=== PATIENT | female | born 1980 ===

== ENCOUNTER 2017-08-10 17:47 | Inpatient (IN) | payer OTHER ==
--- NOTE | 2017-08-10 20:11 | C.PDOC ---
History Of Present Illness 36 year old female presents to the ED for change in IV antibiotics. Patient was seen in the ED on 08/08 and discharged home with antibiotics. Patient's lab results showed urine positive for ESBL-producing E coli and was called back for a change in medication. Patient denies reports suprapubic abdominal pain and has no other complaints at time. Time Seen by Provider: 08/10/17 19:45 Chief Complaint (Nursing): Female Genitourinary History Per: Patient History/Exam Limitations: no limitations Onset/Duration Of Symptoms: Days Current Symptoms Are (Timing): Still Present Additional History Per: Patient Past Medical History Reviewed: Historical Data, Nursing Documentation, Vital Signs Vital Signs: Last Vital Signs Temp 98.2 F 08/10/17 18:19 Pulse 80 08/10/17 18:19 Resp 16 08/10/17 18:19 BP 116/68 08/10/17 18:19 Pulse Ox 95 08/10/17 22:59 - Medical History PMH: No Chronic Diseases Surgical History: No Surg Hx Family History: States: Unknown Family Hx - Social History Hx Alcohol Use: No Hx Substance Use: No - Immunization History Hx Tetanus Toxoid Vaccination: No Hx Influenza Vaccination: No Hx Pneumococcal Vaccination: No Review Of Systems Gastrointestinal: Positive for: Abdominal Pain (suprapubic ) Physical Exam - Physical Exam Appears: Non-toxic, No Acute Distress Skin: Normal Color, Warm, Dry Head: Atraumatic, Normacephalic Eye(s): bilateral: Normal Inspection Oral Mucosa: Moist Neck: Supple Chest: Symmetrical, No Deformity, No Tenderness Cardiovascular: Rhythm Regular, No Murmur Respiratory: Normal Breath Sounds, No Rales, No Rhonchi, No Wheezing Gastrointestinal/Abdominal: Tenderness (suprapubic ), No Guarding, No Rebound Extremity: Normal ROM, Capillary Refill (less than 2 seconds ) Neurological/Psych: Oriented x3, Normal Speech, Normal Cognition Gait: Steady ED Course And Treatment - Laboratory Results Result Diagrams: 08/10/17 20:33 08/10/17 20:33 O2 Sat by Pulse Oximetry: 95 (on RA ) Pulse Ox Interpretation: Normal Medical Decision Making Medical Decision Making: Impression: 36 year old female with suprapubic pain, called back for change in IV antibiotics Plan: * labs * Primaxin IV * reassess and disposition Progress: labs ordered and reviewed. Patient received Primaxin IV. pt needs iv antibiotics as esbl resisten to multiple po antibiotics. Disposition - Disposition Disposition: HOSPITALIZED Disposition Time: 23:52 Condition: STABLE - Clinical Impression Clinical Impression: ESBL (extended spectrum beta-lactamase) producing bacteria infection, UTI ( urinary tract infection) - Scribe Statement The provider has reviewed the documentation as recorded by the Scribe (Yudith Quiroga) Provider Attestation: All medical record entries made by the Scribe were at my direction and personally dictated by me. I have reviewed the chart and agree that the record accurately reflects my personal performance of the history, physical exam, medical decision making, and the department course for this patient. I have also personally directed, reviewed, and agree with the discharge instructions and disposition.
[2017-08-10 20:39] LABS: BASO # 0.1 K/uL (0.0-0.2); BASO % 0.7 % (0.0-2.0); EOS # 0.2 K/uL (0.0-0.7); EOS % 2.1 % (0.0-4.0); HEMATOCRIT 37.7 % (34.0-47.0); LYMPH # 3.7 K/uL (1.0-4.3); LYMPH % 42.6 % (20.0-40.0); MEAN CELL VOLUME 89.1 fL (81.0-99.0); MEAN CORPUSCULAR HGB CONC 33.6 g/dL (33.0-37.0); MEAN PLATELET VOLUME 7.3 fL (7.2-11.7); MONO # 0.5 K/uL (0.0-0.8); MONO % 5.3 % (0.0-10.0); RED CELL DISTRIBUTION WIDTH 12.9 % (11.5-14.5); WHITE BLOOD COUNT 8.6 K/uL (4.8-10.8)
[2017-08-10 20:45] LABS: RBC URINE 29 /hpf (0-3); URINE BILIRUBIN NEGATIVE (NEGATIVE); URINE BLOOD 2+ (NEGATIVE); URINE COLOR Amber (YELLOW); URINE GLUCOSE (UA) NORMAL (Normal); URINE KETONE NEGATIVE (NEGATIVE); URINE LEUKOCYTE ESTERASE NEG Leu/uL (Negative); URINE PROTEIN NEGATIVE (NEGATIVE); WBC URINE 1 /hpf (0-5)
[2017-08-10 20:48] LABS: CHLORIDE 106 mmol/L (98-107); SODIUM 140 mmol/L (132-148)
[2017-08-10 20:50] LABS: ALB/GLOB RATIO 1.4 (1.0-2.1); ALKALINE PHOSPHATASE 48 U/L (38-126); AST/SGOT 30 U/L (14-36); BILIRUBIN,TOTAL 0.8 mg/dL (0.2-1.3); CARBON DIOXIDE 20 mmol/L (22-30); GFR AFRICAN-AMERICAN > 60; TOTAL PROTEIN 7.5 g/dL (6.3-8.3)
[2017-08-10 20:51] LABS: ALT/SGPT 50 U/L (9-52); BLOOD UREA NITROGEN 13 mg/dL (7-17); CALCIUM 9.8 mg/dl (8.6-10.4); GLUCOSE,RANDOM 99 mg/dL (65-105)
--- NOTE | 2017-08-10 22:26 | CT ---
EXAM: CT Abdomen and Pelvis Without Intravenous Contrast CLINICAL HISTORY: 36 years old, female; Pain; Abdominal pain; Other: Pelvic; Additional info: Flank pain TECHNIQUE: Axial computed tomography images of the abdomen and pelvis without intravenous contrast. All CT scans at this facility use one or more dose reduction techniques, viz.: automated exposure control; ma/kV adjustment per patient size (including targeted exams where dose is matched to indication; i.e. head); or iterative reconstruction technique. Coronal and sagittal reformatted images were created and reviewed. COMPARISON: No relevant prior studies available. FINDINGS: Lower thorax: No acute findings. ABDOMEN: Liver: Unremarkable. Gallbladder and bile ducts: No calcified stones. No ductal dilation. Pancreas: Unremarkable. No ductal dilation. Spleen: No splenomegaly. Adrenals: No mass. Kidneys and ureters: No renal calculi. No hydronephrosis. Stomach and bowel: No definite mural thickening. No obstruction. Appendix: No definite findings to suggest acute appendicitis. PELVIS: Bladder: Unremarkable. No stones. Reproductive: Unremarkable as visualized. ABDOMEN and PELVIS: Intraperitoneal space: No significant fluid collection. No free air. Bones/joints: No acute fracture. Soft tissues: Tiny umbilical hernia containing fat. Vasculature: Unremarkable. No aneurysm. Lymph nodes: No pathologically enlarged lymph nodes. IMPRESSION: 1. No CT evidence of urolithiasis. 2. Incidental/non-acute findings are described above.
[2017-08-11 01:29] VITALS: RESP 20
--- NOTE | 2017-08-11 03:45 | CP.PCM.HP ---
<Skyler Magana - Last Filed: 08/11/17 04:07> History of Present Illness - History of Present Illness History of Present Illness: CC: I was called back 36 yo F with a PMHx of recurrent UTI's returns to the ED because her urine culture from a few days ago has grown EColi + for ESBL. She presented to the ED on 08/08 for dysuria and urinary frequency and was sent home on Cipro and Flagyl , however the patient returns today for an antibiotic change more suited to cover for + ESBL. Today she complains of dysuria, urinary frequency, bladder fullness, and headache. She says she gets a UTI every 2 months which she treats with over the counter anti-inflammatory meds. She does not have a PMD. Associated symptoms include low back pain and abdominal pain in the hypogastric region. She denies gross hematuria, nausea, vomiting, flank pain, diarrhea, fever, chills. 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 FamHx: Mom: urinary incontinence, frequent UTIs, HTN; Father: HTN Present on Admission - Present on Admission Any Indicators Present on Admission: No History of DVT/PE: No History of Uncontrolled Diabetes: No Urinary Catheter: No Decubitus Ulcer Present: No Review of Systems - Constitutional Constitutional: absent: Chills, Fever - EENT Eyes: absent: Change in Vision Ears: absent: Ear Pain Nose/Mouth/Throat: absent: Nasal Congestion, Nasal Discharge - Cardiovascular Cardiovascular: absent: Chest Pain, Diaphoresis, Palpitations - Respiratory Respiratory: absent: Cough, Dyspnea, Wheezing - Gastrointestinal Gastrointestinal: As Per HPI, Constipation. absent: Diarrhea - Genitourinary Genitourinary: As Per HPI, Dysuria, Urinary Frequency, Freq UTI, Bladder Distension. absent: Flank Pain, Hematuria, Pyuria, Urinary Incontinence - Reproductive: Female Reproductive:Female: Normal Menses - Musculoskeletal Musculoskeletal: As Per HPI, Back Pain - Neurological Neurological: Headaches. absent: Convulsions, Dizziness Past Patient History - Infectious Disease Hx of Infectious Diseases: None - Past Medical History & Family History Past Medical History?: No - Past Social History Smoking Status: Never Smoked - PSYCHIATRIC Hx Substance Use: No - SURGICAL HISTORY Hx Surgeries: Yes Hx Section: Yes - ANESTHESIA Hx Anesthesia: Yes Hx Anesthesia Reactions: No Meds Allergies/Adverse Reactions: Allergies Allergy/AdvReac Type Severity Reaction Status Date / Time seasonal Allergy Uncoded 08/10/17 18:19 Physical Exam - Constitutional Appears: Well, Non-toxic, No Acute Distress - Head Exam Head Exam: ATRAUMATIC, NORMAL INSPECTION - Eye Exam Eye Exam: EOMI Pupil Exam: PERRL - ENT Exam ENT Exam: Mucous Membranes Moist - Neck Exam Neck exam: Positive for: Normal Inspection. Negative for: Lymphadenopathy - Respiratory Exam Respiratory Exam: Clear to Auscultation Bilateral, NORMAL BREATHING PATTERN. absent: Rales, Rhonchi, Wheezes - Cardiovascular Exam Cardiovascular Exam: REGULAR RHYTHM, RRR, +S1, +S2. absent: Bradycardia, Tachycardia, +S4 - GI/Abdominal Exam GI & Abdominal Exam: Normal Bowel Sounds, Soft. absent: Distended, Tenderness - Rectal Exam Rectal Exam: Deferred - Extremities Exam Extremities exam: Positive for: normal inspection, pedal pulses present. Negative for: pedal edema, tenderness - Back Exam Back exam: absent: CVA tenderness (L), CVA tenderness (R), tenderness, vertebral tenderness - Neurological Exam Neurological exam: Alert, Normal Gait, Oriented x3 - Psychiatric Exam Psychiatric exam: Normal Affect, Normal Mood - Skin Skin Exam: Dry, Intact, Normal Color, Warm Results - Vital Signs Recent Vital Signs: Last Vital Signs Temp 97.8 F 08/11/17 01:28 Pulse 71 08/11/17 02:36 Resp 20 08/11/17 01:28 BP 103/66 08/11/17 01:28 Pulse Ox 97 08/11/17 01:28 - Labs Result Diagrams: 08/10/17 20:33 08/10/17 20:33 Labs: Laboratory Results - last 24 hr 08/10/17 08/10/17 08/10/17 20:07 20:20 20:33 WBC 8.6 RBC 4.23 Hgb 12.7 Hct 37.7 MCV 89.1 MCH 30.0 MCHC 33.6 RDW 12.9 Plt Count 219 MPV 7.3 Neut % (Auto) 49.3 L Lymph % (Auto) 42.6 H [place] % (Auto) 5.3 Eos % (Auto) 2.1 Baso % (Auto) 0.7 Neut # 4.2 Lymph # 3.7 [place] # 0.5 Eos # 0.2 Baso # 0.1 PT INR APTT Sodium Potassium Chloride Carbon Dioxide Anion Gap BUN Creatinine Est GFR ( Amer) Est GFR (Non-Af Amer) POC Glucose (mg/dL) 125 H Random Glucose Calcium Total Bilirubin AST ALT Alkaline Phosphatase Total Protein Albumin Globulin Albumin/Globulin Ratio Lipase Urine Color Jane Urine Clarity Clear Urine pH 5.0 Ur Specific [place] 1.011 Urine Protein Negative Urine Glucose (UA) Normal Urine Ketones Negative Urine Blood 2+ H Urine Nitrate Negative Urine Bilirubin Negative Urine Urobilinogen 4.0 H Ur Leukocyte Esterase Neg Urine WBC (Auto) 1 Urine RBC (Auto) 29 H Ur Squamous Epith Cells 2 Urine HCG, Qual Negative 08/10/17 08/10/17 20:33 20:33 WBC RBC Hgb Hct MCV MCH MCHC RDW Plt Count MPV Neut % (Auto) Lymph % (Auto) [place] % (Auto) Eos % (Auto) Baso % (Auto) Neut # Lymph # [place] # Eos # Baso # PT 10.8 INR 1.0 APTT 29 Sodium 140 Potassium 4.0 Chloride 106 Carbon Dioxide 20 L Anion Gap 18 BUN 13 Creatinine 0.5 L Est GFR ( Amer) > 60 Est GFR (Non-Af Amer) > 60 POC Glucose (mg/dL) Random Glucose 99 Calcium 9.8 Total Bilirubin 0.8 AST 30 ALT 50 Alkaline Phosphatase 48 Total Protein 7.5 Albumin 4.4 Globulin 3.1 Albumin/Globulin Ratio 1.4 Lipase 97 Urine Color Urine Clarity Urine pH Ur Specific [place] Urine Protein Urine Glucose (UA) Urine Ketones Urine Blood Urine Nitrate Urine Bilirubin Urine Urobilinogen Ur Leukocyte Esterase Urine WBC (Auto) Urine RBC (Auto) Ur Squamous Epith Cells Urine HCG, Qual Assessment & Plan (1) ESBL (extended spectrum beta-lactamase) producing bacteria infection Assessment and Plan: ID consulted, Dr Burns, recommendations appreciated Primaxin 500mg ivpb one dose given in ED. contact precautions F/U blood cx, urine cx Status: Acute (2) History of recurrent UTIs Assessment and Plan: Pt with no PMD, encourage to enroll in [facility] and apply for [facility] Status: Acute (3) Elevated glucose level Assessment and Plan: Glucose 125 on admission F/U HgA1C Status: Acute (4) Prophylactic measure Assessment and Plan: DVT: heparin 5000u sc q12 GI: pepcid 20mg po daily Diet: regular diet Status: Acute <Dalton Abdalla - Last Filed: 08/11/17 06:22> Results - Vital Signs Recent Vital Signs: Last Vital Signs Temp 97.8 F 08/11/17 06:11 Pulse 66 08/11/17 06:11 Resp 20 08/11/17 06:11 BP 104/71 08/11/17 06:11 Pulse Ox 97 08/11/17 06:11 - Labs Result Diagrams: 08/10/17 20:33 08/10/17 20:33 Labs: Laboratory Results - last 24 hr 08/10/17 08/10/17 08/10/17 20:07 20:20 20:33 WBC 8.6 RBC 4.23 Hgb 12.7 Hct 37.7 MCV 89.1 MCH 30.0 MCHC 33.6 RDW 12.9 Plt Count 219 MPV 7.3 Neut % (Auto) 49.3 L Lymph % (Auto) 42.6 H [place] % (Auto) 5.3 Eos % (Auto) 2.1 Baso % (Auto) 0.7 Neut # 4.2 Lymph # 3.7 [place] # 0.5 Eos # 0.2 Baso # 0.1 PT INR APTT Sodium Potassium Chloride Carbon Dioxide Anion Gap BUN Creatinine Est GFR ( Amer) Est GFR (Non-Af Amer) POC Glucose (mg/dL) 125 H Random Glucose Calcium Total Bilirubin AST ALT Alkaline Phosphatase Total Protein Albumin Globulin Albumin/Globulin Ratio Lipase Urine Color Jane Urine Clarity Clear Urine pH 5.0 Ur Specific [place] 1.011 Urine Protein Negative Urine Glucose (UA) Normal Urine Ketones Negative Urine Blood 2+ H Urine Nitrate Negative Urine Bilirubin Negative Urine Urobilinogen 4.0 H Ur Leukocyte Esterase Neg Urine WBC (Auto) 1 Urine RBC (Auto) 29 H Ur Squamous Epith Cells 2 Urine HCG, Qual Negative 08/10/17 08/10/17 20:33 20:33 WBC RBC Hgb Hct MCV MCH MCHC RDW Plt Count MPV Neut % (Auto) Lymph % (Auto) [place] % (Auto) Eos % (Auto) Baso % (Auto) Neut # Lymph # [place] # Eos # Baso # PT 10.8 INR 1.0 APTT 29 Sodium 140 Potassium 4.0 Chloride 106 Carbon Dioxide 20 L Anion Gap 18 BUN 13 Creatinine 0.5 L Est GFR ( Amer) > 60 Est GFR (Non-Af Amer) > 60 POC Glucose (mg/dL) Random Glucose 99 Calcium 9.8 Total Bilirubin 0.8 AST 30 ALT 50 Alkaline Phosphatase 48 Total Protein 7.5 Albumin 4.4 Globulin 3.1 Albumin/Globulin Ratio 1.4 Lipase 97 Urine Color Urine Clarity Urine pH Ur Specific [place] Urine Protein Urine Glucose (UA) Urine Ketones Urine Blood Urine Nitrate Urine Bilirubin Urine Urobilinogen Ur Leukocyte Esterase Urine WBC (Auto) Urine RBC (Auto) Ur Squamous Epith Cells Urine HCG, Qual Assessment & Plan - Date & Time Date: 08/11/17 (I have seen and examined the patient. I agree with the findings and plan of care as documented by Dr. Magana.) Time: 06:19 Attending/Attestation - Attestation I have personally seen and examined this patient.: Yes I have fully participated in the care of the patient.: Yes I have reviewed all pertinent clinical information: Yes
[2017-08-11 06:20] LABS: BASO # 0.1 K/uL (0.0-0.2); BASO % 0.6 % (0.0-2.0); EOS # 0.3 K/uL (0.0-0.7); EOS % 3.2 % (0.0-4.0); HEMATOCRIT 37.4 % (34.0-47.0); LYMPH # 3.5 K/uL (1.0-4.3); LYMPH % 43.2 % (20.0-40.0); MEAN CELL VOLUME 88.2 fL (81.0-99.0); MEAN CORPUSCULAR HEMOGLOBIN 29.5 pg (27.0-31.0); MEAN CORPUSCULAR HGB CONC 33.5 g/dL (33.0-37.0); MEAN PLATELET VOLUME 7.3 fL (7.2-11.7); MONO # 0.5 K/uL (0.0-0.8); MONO % 5.6 % (0.0-10.0); RED CELL DISTRIBUTION WIDTH 13.2 % (11.5-14.5); WHITE BLOOD COUNT 8.1 K/uL (4.8-10.8)
[2017-08-11 06:38] LABS: ALB/GLOB RATIO 1.4 (1.0-2.1); ALKALINE PHOSPHATASE 40 U/L (38-126); ALT/SGPT 46 U/L (9-52); AST/SGOT 24 U/L (14-36); BILIRUBIN,TOTAL 1.3 mg/dL (0.2-1.3); BLOOD UREA NITROGEN 12 mg/dL (7-17); CALCIUM 8.7 mg/dl (8.6-10.4); CARBON DIOXIDE 21 mmol/L (22-30); CHLORIDE 101 mmol/L (98-107); GFR AFRICAN-AMERICAN > 60; GLUCOSE,RANDOM 86 mg/dL (65-105); POTASSIUM 3.9 mmol/L (3.6-5.2); SODIUM 136 mmol/L (132-148); TOTAL PROTEIN 6.6 g/dL (6.3-8.3)
--- NOTE | 2017-08-11 07:54 | CP.PCM.PN ---
<Michelle Hobson - Last Filed: 08/11/17 11:52> Subjective - Date & Time of Evaluation Date of Evaluation: 08/11/17 Time of Evaluation: 07:00 - Subjective Subjective: Medicine Note for Dr. Panchal Patient was seen and examined at bedside. She reported less dysuria and abdominal pain. She continues to have some flank pain and suprapubic tenderness. Denied fever,chills, headache, chest pain, SOB, abdominal pain, n/v /d/c, or urinary symptoms. Objective - Vital Signs/Intake and Output Vital Signs (last 24 hours): Temp Pulse Resp BP Pulse Ox 98.3 F 67 20 117/78 99 08/11/17 06:29 08/11/17 06:29 08/11/17 06:29 08/11/17 06:29 08/11/17 06:29 - Medications Medications: Current Medications Famotidine (Pepcid) 20 mg PO DAILY [facility] Heparin Sodium (Porcine) (Heparin) 5,000 units SC Q12 [facility] Imipenem/Cilastatin Sodium 250 (mg/ Sodium Chloride) 100 mls @ 100 mls/hr IVPB Q6H [facility] - Labs Labs: 08/11/17 06:16 08/11/17 06:16 PT 10.8 SECONDS (9.7-12.2) 08/10/17 20:33 INR 1.0 08/10/17 20:33 APTT 29 SECONDS (21-34) 08/10/17 20:33 - Constitutional Appears: No Acute Distress - Head Exam Head Exam: NORMAL INSPECTION, NORMOCEPHALIC - Eye Exam Eye Exam: EOMI, Normal appearance, PERRL Pupil Exam: NORMAL ACCOMODATION - ENT Exam ENT Exam: Mucous Membranes Moist, Normal Exam - Respiratory Exam Respiratory Exam: Clear to Ausculation Bilateral, NORMAL BREATHING PATTERN. absent: Decreased Breath Sounds - Cardiovascular Exam Cardiovascular Exam: REGULAR RHYTHM, RRR, +S1, +S2 - GI/Abdominal Exam GI & Abdominal Exam: Soft, Normal Bowel Sounds. absent: Distended, Tenderness - Exam Exam: absent: Uretheral Discharge, Bladder Distension - Extremities Exam Extremities Exam: Normal Inspection. absent: Pedal Edema, Tenderness - Neurological Exam Neurological Exam: Alert, Awake, Oriented x3 - Psychiatric Exam Psychiatric exam: Normal Affect, Normal Mood - Skin Skin Exam: Dry, Intact, Normal Color, Warm Assessment and Plan - Assessment and Plan (Free Text) Plan: ESBL in URINE Assessment and Plan: Urine culture 08/08/17: ESBL + Contact precautions ID consulted, Dr Burns, recommendations appreciated F/U blood cx, repeat urine cx, procal * NS @ 100cc/hr * Primaxin 500mg IVP Q6H Status: Acute Elevated glucose level Assessment and Plan: Glucose 125 on admission HgA1C 5.7 Status: Acute History of recurrent UTIs Assessment and Plan: Pt with no PMD, encourage to enroll in [facility] and apply for [facility] care Status: Acute Prophylactic measure Assessment and Plan: DVT: heparin 5000u sc q12 GI: pepcid 20mg po daily Diet: regular diet Status: Acute DW Dr. Abdulkadir Hobson DO, PGY-1 <Sherin Panchal V - Last Filed: 08/14/17 09:00> Objective - Vital Signs/Intake and Output Vital Signs (last 24 hours): Temp Pulse Resp BP Pulse Ox 98.2 F 67 20 101/64 98 08/14/17 07:54 08/14/17 07:54 08/14/17 07:54 08/14/17 07:54 08/14/17 07:54 Intake and Output: 08/14/17 08/14/17 06:59 18:59 Intake Total 0 Balance 194 - Medications Medications: Current Medications Famotidine (Pepcid) 20 mg PO DAILY [facility] Last Admin: 08/13/17 09:41 Dose: 20 mg Heparin Sodium (Porcine) (Heparin) 5,000 units SC Q12 [facility] Last Admin: 08/13/17 21:51 Dose: 5,000 units Imipenem/Cilastatin Sodium 250 (mg/ Sodium Chloride) 100 mls @ 100 mls/hr IVPB Q6H [facility] Last Admin: 08/14/17 06:03 Dose: 100 mls/hr Sodium Chloride (Sodium Chloride 0.9%) 1,000 mls @ 100 mls/hr IV .Q10H [facility] Last Admin: 08/14/17 06:01 Dose: Not Given - Labs Labs: 08/14/17 08:17 08/14/17 08:17 PT 10.8 SECONDS (9.7-12.2) 08/10/17 20:33 INR 1.0 08/10/17 20:33 APTT 29 SECONDS (21-34) 08/10/17 20:33 Attending/Attestation - Attestation I have personally seen and examined this patient.: Yes I have fully participated in the care of the patient.: Yes I have reviewed all pertinent clinical information, including history, physical exam and plan: Yes Notes (Text): This is late computer entry for 08/11/17. Patient seen, examined and case discussed with day-time resident. Patient seen with at bedside. Patient reports supra pubic pain, mild flank pain, and associated frequency and dysuria. Patient was called by from the ED for urine culture that was positive for ESBL+. Patient started on Primaxin IV based on GANESH from 05/08/17. f/u repeat cultures Infectious Disease on consult-->help appreciated Assessment/Plan 1) ESBL in URINE Assessment and Plan: * Urine culture (08/08/17): ESBL + * Contact precautions * Blod Cultures (08/10/17): f/u * Urine culture (08/10/17): pending * Ordered for procalcitonin * NS @ 100cc/hr * Primaxin 500mg IVP Q6H (active since 08/11/17) Status: Acute 2) Impaired glucose tolerance Assessment and Plan: * Glucose 125 on admission * HgA1C 5.7 * Patient to repeat [id number] in one year to prevent overt diabetes Status: Acute 3) History of recurrent UTIs Assessment and Plan: * Pt with no PMD, encourage to enroll in [facility] to follow- up post hospitalization and apply for [facility] care Status: Acute 4) Prophylactic measure Assessment and Plan: * DVT: heparin 5000u sc q12 * GI: pepcid 20mg po daily * Diet: regular diet Status: Acute
[2017-08-11] MEDS: Imipenem/Cilastatin 250 MG in Sodium Chloride 100 ML IVPB SCH ×3 (09:06→17:59)
[2017-08-11] MEDS: Sodium Chloride 0.9% 1,000 ML IV SCH ×2 (09:58→17:56)
--- NOTE | 2017-08-11 13:57 | CP.PCM.CON ---
History of Present Illness - History of Present Illness History of Present Illness: 36 yo F with a PMHx of recurrent UTI's returns to the ED because her urine culture from a few days ago has grown EColi + for ESBL. She presented to the ED on 08/08 for dysuria and urinary frequency and was sent home on Cipro and Flagyl , however the patient returns today for an antibiotic change more suited to cover for + ESBL. Today she complains of dysuria, urinary frequency, bladder fullness, and headache. She says she gets a UTI every 2 months which she treats with over the counter anti-inflammatory meds. 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 FamHx: Mom: urinary incontinence, frequent UTIs, HTN; Father: HTN Review of Systems - Review of Systems All systems: reviewed and no additional remarkable complaints except - Constitutional Constitutional: As Per HPI - EENT Eyes: absent: As Per HPI, Blind Spots, Blurred Vision, Change in Vision, Decreased Night Vision, Diplopia, Discharge, Dry Eye, Exophthalmos, Floaters, Irritation, Itchy Eyes, Loss of Peripheral Vision, Pain, Photophobia, Requires Corrective Lenses, Sees Flashes, Spots in Vision, Tunnel Vision, Other Visual Disturbances, Loss of Vision, Other Ears: absent: As Per HPI, Decreased Hearing, Ear Discharge, Ear Pain, Tinnitus, Abnormal Hearing, Disequilibrium, Dizziness, Other Nose/Mouth/Throat: absent: As Per HPI, Epistaxis, Nasal Congestion, Nasal Discharge, Nasal Obstruction, Nasal Trauma, Nose Pain, Post Nasal Drip, Sinus Pain, Sinus Pressure, Bleeding Gums, Change in Voice, Dental Pain, Dry Mouth, Dysphagia, Halitosis, Hoarsness, Lip Swelling, Mouth Lesions, Mouth Pain, Odynophagia, Sore Throat, Throat Swelling, Tongue Swelling, Facial Pain, Neck Pain, Neck Mass, Other - Breasts Breasts: absent: As Per HPI, Change in Shape, Mass, Pain, Nipple Discharge, Nipple Inversion, Skin Changes, Swelling, Other - Cardiovascular Cardiovascular: absent: As Per HPI, Acrocyanosis, Chest Pain, Chest Pain at Rest , Chest Pain with Activity, Claudication, Diaphoresis, Dyspnea, Dyspnea on Exertion, Edema, Irregular Heart Rhythm, Pain Radiating to Arm/Neck/Jaw, Leg Edema, Leg Ulcers, Lightheadedness, Orthopnea, Palpitations, Paroxysmal Nocturnal Dyspnea, Pedal Edema, Radiating Pain, Rapid Heart Rate, Slow Heart Rate, Syncope, Other - Respiratory Respiratory: absent: As Per HPI, Cough, Dyspnea, Hemoptysis, Dyspnea on Exertion , Wheezing, Snoring, Stridor, Pain on Inspiration, Chest Congestion, Excessive Mucous Production, Change in Mucous Color, Pain with Coughing, Other - Gastrointestinal Gastrointestinal: absent: As Per HPI, Abdominal Pain, Belching, Bloating, Change in Bowel Habits, Change in Stool Character, Coffee Ground Emesis, Constipation, Cramping, Diarrhea, Dyspepsia, Dysphagia, Early Satiety, Excessive Flatus, Fecal Incontinence, Heartburn, Hematemesis, Hematochezia, Loose Stools, Melena, Nausea, Odynophagia, Temesmus, Vomiting, Other - Genitourinary Genitourinary: As Per HPI - Reproductive: Female Reproductive:Female: absent: As Per HPI, Amenorrhea, Amenorrhea/ Control, Currently Menstual, Cycle <21 Days, Cycle >35 Days, Cycle Variable, Menses 1-7 Days, Menses >/= 8 Days, Menses Variable, Cycle > 4 Weeks Between, No Menses for 6 Months, Heavy Menses, Light Menses, Normal Menses, Spotting Between Cycles , S/P Hysterectomy, Menopausal, Post Menopausal, Premenarche, Abnormal Vaginal Bleeding, Dysmenorrhea, Dyspareunia, Genital Lesions, Genital Pruritis, Pelvic Pain, Prolapse Symptoms, Sexual Dysfunction, Vaginal Discharge, Vaginal Dryness , Vaginal Odor, Vaginal Pruritis, Other - Menstruation Menstruation: absent: As Per HPI, Amenorrhea, Amenorrhea/ Control, Currently Menstual, Cycle <21 Days, Cycle >35 Days, Cycle Variable, Menses 1-7 Days, Menses >/= 8 Days, Menses Variable, Cycle > 4 Weeks Between, No Menses for 6 Months, Heavy Menses, Light Menses, Normal Menses, Spotting Between Cycles , S/P Hysterectomy, Menopausal, Post Menopausal, Premenarche, Abnormal Vaginal Bleeding, Dysmenorrhea, Other - Musculoskeletal Musculoskeletal: absent: As Per HPI, Abnormal Gait, Arthralgias, Atrophy, Back Pain, Deformity, Joint Swelling, Limited Range of Motion, Loss of Height, Muscle Cramps, Muscle Weakness, Myalgias, Neck Pain, Numbness, Radiating Pain into Limb, Stiffness, Tingling, Other - Integumentary Integumentary: absent: As Per HPI, Acne, Alopecia, Bleeding Lesions, Change in Hair, Change in Nails, Change in Pigmentation, Changing Lesions, Dry Skin, Erythema, Furuncle, Hirsutism, Lesions, New Lesions, Non-Healing Lesions, Photosensitivity, Pruritus, Rash, Skin Pain, Skin Ulcer, Sores, Striae, Swelling , Unusual Bruising, Wounds, Jaundice, Other - Neurological Neurological: absent: As Per HPI, Abnormal Gait, Abnormal Hearing, Abnormal Movements, Abnormal Speech, Behavioral Changes, Burning Sensations, Confusion, Convulsions, Disequilibrium, Dizziness, Numbness, Focal Weakness, Frequent Falls , Headaches, Lack of Coordination, Loss of Vision, Memory Loss, Paresthesias, Radicular Pain, Restless Legs, Sensory Deficit, Syncope, Tingling, Tremor, Vertigo, Weakness, Other Visual Disturbances, Other - Psychiatric Psychiatric: absent: As Per HPI, Abnormal Sleep Pattern, Anhedonia, Anxiety, Auditory Hallucinations, Behavioral Changes, Change in Appetite, Change in Libido, Confusion, Depression, Difficulty Concentrating, Hallucinations, Homicidal Ideation, Hopelessness, Irritability, Memory Loss, Mood Swings, Panic Attacks, Paranoia, Suicidal Ideation, Visual Hallucinations, Tactile Hallucinations, Other - Endocrine Endocrine: absent: As Per HPI, Change in Body Appearance, Change in Libido, Cold Intolorance, Deepening of Voice, Excessive Sweating, Fatigue, Flushing, Heat Intolorance, Increase in Ring/Shoe/Hat Size, Palpitations, Polydipsia, Polyphagia, Polyuria, Other - Hematologic/Lymphatic Hematologic: absent: As Per HPI, Easy Bleeding, Easy Bruising, Lymphadenopathy, Other Past Patient History - Infectious Disease Hx of Infectious Diseases: None - Past Medical History & Family History Past Medical History?: No - Past Social History Smoking Status: Never Smoked - MUSCULOSKELETAL/RHEUMATOLOGICAL Hx Falls: No - PSYCHIATRIC Hx Substance Use: No - SURGICAL HISTORY Hx Surgeries: Yes Hx Section: Yes - ANESTHESIA Hx Anesthesia: Yes Hx Anesthesia Reactions: No Meds Allergies/Adverse Reactions: Allergies Allergy/AdvReac Type Severity Reaction Status Date / Time seasonal Allergy Uncoded 08/10/17 18:19 - Medications Medications: Current Medications Famotidine (Pepcid) 20 mg PO DAILY COUNTS [facility]CLUDE 234 BEDS AT THE [facility] Last Admin: 08/11/17 10:09 Dose: 20 mg Heparin Sodium (Porcine) (Heparin) 5,000 units SC Q12 COUNTS INCLUDE 234 BEDS AT THE [facility] Last Admin: 08/11/17 10:10 Dose: 5,000 units Imipenem/Cilastatin Sodium 250 (mg/ Sodium Chloride) 100 mls @ 100 mls/hr IVPB Q6H COUNTS INCLUDE 234 BEDS AT THE [facility] Last Admin: 08/11/17 09:06 Dose: 100 mls/hr Sodium Chloride (Sodium Chloride 0.9%) 1,000 mls @ 100 mls/hr IV .Q10H COUNTS INCLUDE 234 BEDS AT THE [facility] Last Admin: 08/11/17 09:58 Dose: 100 mls/hr Physical Exam - Constitutional Appears: Non-toxic, Chronically Ill - Head Exam Head Exam: NORMOCEPHALIC - Eye Exam Eye Exam: PERRL. absent: Scleral icterus - ENT Exam ENT Exam: Mucous Membranes Dry, Normal External Ear Exam - Neck Exam Neck exam: Negative for: Lymphadenopathy - Respiratory Exam Respiratory Exam: Decreased Breath Sounds, Clear to Auscultation Bilateral - Cardiovascular Exam Cardiovascular Exam: REGULAR RHYTHM, +S1, +S2 - GI/Abdominal Exam GI & Abdominal Exam: Diminished Bowel Sounds, Soft. absent: Tenderness - Rectal Exam Rectal Exam: Deferred - Exam Exam: NORMAL INSPECTION - Extremities Exam Extremities exam: Positive for: pedal pulses present. Negative for: calf tenderness, pedal edema, tenderness - Back Exam Back exam: absent: CVA tenderness (L), CVA tenderness (R), paraspinal tenderness - Neurological Exam Neurological exam: Alert, CN II-XII Intact, Oriented x3, Reflexes Normal - Psychiatric Exam Psychiatric exam: Normal Mood - Skin Skin Exam: Dry, Intact Results - Vital Signs Recent Vital Signs: Last Vital Signs Temp 97.7 F 08/11/17 08:02 Pulse 68 08/11/17 08:02 Resp 20 08/11/17 08:02 BP 117/76 08/11/17 08:02 Pulse Ox 97 08/11/17 08:02 - Labs Result Diagrams: 08/11/17 06:16 08/11/17 06:16 Labs: Laboratory Results - last 24 hr 08/10/17 08/10/17 08/10/17 20:07 20:20 20:33 WBC 8.6 RBC 4.23 Hgb 12.7 Hct 37.7 MCV 89.1 MCH 30.0 MCHC 33.6 RDW 12.9 Plt Count 219 MPV 7.3 Neut % (Auto) 49.3 L Lymph % (Auto) 42.6 H Mower % (Auto) 5.3 Eos % (Auto) 2.1 Baso % (Auto) 0.7 Neut # 4.2 Lymph # 3.7 Mower # 0.5 Eos # 0.2 Baso # 0.1 PT INR APTT Sodium Potassium Chloride Carbon Dioxide Anion Gap BUN Creatinine Est GFR ( Amer) Est GFR (Non-Af Amer) POC Glucose (mg/dL) 125 H Random Glucose Hemoglobin A1c Calcium Total Bilirubin AST ALT Alkaline Phosphatase Total Protein Albumin Globulin Albumin/Globulin Ratio Lipase Procalcitonin Urine Color Jane Urine Clarity Clear Urine pH 5.0 Ur Specific [place] 1.011 Urine Protein Negative Urine Glucose (UA) Normal Urine Ketones Negative Urine Blood 2+ H Urine Nitrate Negative Urine Bilirubin Negative Urine Urobilinogen 4.0 H Ur Leukocyte Esterase Neg Urine WBC (Auto) 1 Urine RBC (Auto) 29 H Ur Squamous Epith Cells 2 Urine HCG, Qual Negative 08/10/17 08/10/17 08/11/17 20:33 20:33 06:16 WBC 8.1 RBC 4.24 Hgb 12.5 Hct 37.4 MCV 88.2 MCH 29.5 MCHC 33.5 RDW 13.2 Plt Count 217 MPV 7.3 Neut % (Auto) 47.4 L Lymph % (Auto) 43.2 H Mower % (Auto) 5.6 Eos % (Auto) 3.2 Baso % (Auto) 0.6 Neut # 3.8 Lymph # 3.5 Mower # 0.5 Eos # 0.3 Baso # 0.1 PT 10.8 INR 1.0 APTT 29 Sodium 140 Potassium 4.0 Chloride 106 Carbon Dioxide 20 L Anion Gap 18 BUN 13 Creatinine 0.5 L Est GFR ( Amer) > 60 Est GFR (Non-Af Amer) > 60 POC Glucose (mg/dL) Random Glucose 99 Hemoglobin A1c Calcium 9.8 Total Bilirubin 0.8 AST 30 ALT 50 Alkaline Phosphatase 48 Total Protein 7.5 Albumin 4.4 Globulin 3.1 Albumin/Globulin Ratio 1.4 Lipase 97 Procalcitonin Urine Color Urine Clarity Urine pH Ur Specific [place] Urine Protein Urine Glucose (UA) Urine Ketones Urine Blood Urine Nitrate Urine Bilirubin Urine Urobilinogen Ur Leukocyte Esterase Urine WBC (Auto) Urine RBC (Auto) Ur Squamous Epith Cells Urine HCG, Qual 08/11/17 08/11/17 08/11/17 06:16 07:42 07:42 WBC RBC Hgb Hct MCV MCH MCHC RDW Plt Count MPV Neut % (Auto) Lymph % (Auto) Mower % (Auto) Eos % (Auto) Baso % (Auto) Neut # Lymph # Mower # Eos # Baso # PT INR APTT Sodium 136 Potassium 3.9 Chloride 101 Carbon Dioxide 21 L Anion Gap 18 BUN 12 Creatinine 0.5 L Est GFR ( Amer) > 60 Est GFR (Non-Af Amer) > 60 POC Glucose (mg/dL) Random Glucose 86 Hemoglobin A1c 5.7 Calcium 8.7 Total Bilirubin 1.3 AST 24 ALT 46 Alkaline Phosphatase 40 Total Protein 6.6 Albumin 3.9 Globulin 2.7 Albumin/Globulin Ratio 1.4 Lipase Procalcitonin 0.05 L Urine Color Urine Clarity Urine pH Ur Specific [place] Urine Protein Urine Glucose (UA) Urine Ketones Urine Blood Urine Nitrate Urine Bilirubin Urine Urobilinogen Ur Leukocyte Esterase Urine WBC (Auto) Urine RBC (Auto) Ur Squamous Epith Cells Urine HCG, Qual Assessment & Plan (1) ESBL (extended spectrum beta-lactamase) producing bacteria infection Status: Acute (2) History of recurrent UTIs Status: Acute - Assessment and Plan (Free Text) Assessment: unclear if pt has UTI based on U/A consider short course of rx and follow up with / 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
[2017-08-12] MEDS: Imipenem/Cilastatin 250 MG in Sodium Chloride 100 ML IVPB SCH ×4 (00:21→17:19)
[2017-08-12 02:54] LABS: RBC URINE 2 /hpf (0-3); URINE BILIRUBIN NEGATIVE (NEGATIVE); URINE COLOR Straw (YELLOW); URINE GLUCOSE (UA) NORMAL (Normal); URINE KETONE NEGATIVE (NEGATIVE); URINE LEUKOCYTE ESTERASE NEG Leu/uL (Negative); URINE PROTEIN NEGATIVE (NEGATIVE); URINE UROBILINOGEN NORMAL mg/dL (0.2-1.0); WBC URINE < 1 /hpf (0-5)
[2017-08-12 03:35] LABS: URINE BLOOD TRACE (NEGATIVE)
[2017-08-12] MEDS: Sodium Chloride 0.9% 1,000 ML IV SCH ×2 (05:16→18:14)
[2017-08-12 06:34] LABS: BASO % 0.3 % (0.0-2.0); EOS # 0.2 K/uL (0.0-0.7); EOS % 2.3 % (0.0-4.0); HEMATOCRIT 34.2 % (34.0-47.0); LYMPH # 3.9 K/uL (1.0-4.3); LYMPH % 48.1 % (20.0-40.0); MEAN CELL VOLUME 89.1 fL (81.0-99.0); MEAN CORPUSCULAR HEMOGLOBIN 30.5 pg (27.0-31.0); MEAN CORPUSCULAR HGB CONC 34.2 g/dL (33.0-37.0); MEAN PLATELET VOLUME 7.7 fL (7.2-11.7); MONO # 0.5 K/uL (0.0-0.8); MONO % 5.7 % (0.0-10.0); NRBC % 0.1 % (0.0-2.0); RED CELL DISTRIBUTION WIDTH 13.2 % (11.5-14.5); WHITE BLOOD COUNT 8.1 K/uL (4.8-10.8)
[2017-08-12 07:08] LABS: ALB/GLOB RATIO 1.3 (1.0-2.1); ALKALINE PHOSPHATASE 44 U/L (38-126); ALT/SGPT 40 U/L (9-52); AST/SGOT 21 U/L (14-36); BILIRUBIN,TOTAL 0.8 mg/dL (0.2-1.3); BLOOD UREA NITROGEN 14 mg/dL (7-17); CALCIUM 8.8 mg/dl (8.6-10.4); CARBON DIOXIDE 23 mmol/L (22-30); CHLORIDE 103 mmol/L (98-107); GFR AFRICAN-AMERICAN > 60; GLUCOSE,RANDOM 87 mg/dL (65-105); MAGNESIUM 1.6 mg/dL (1.6-2.3); PHOSPHOROUS 4.3 mg/dL (2.5-4.5); POTASSIUM 3.7 mmol/L (3.6-5.2); SODIUM 136 mmol/L (132-148); TOTAL PROTEIN 6.1 g/dL (6.3-8.3)
--- NOTE | 2017-08-12 07:28 | CP.PCM.PN ---
<Michelle Hobson - Last Filed: 08/12/17 12:39> Subjective - Date & Time of Evaluation Date of Evaluation: 08/12/17 Time of Evaluation: 07:00 - Subjective Subjective: Medicine Note for Dr. Panchal Patient was seen and examined at bedside. Patient has no acute complaints. She has some mild intermittent right sided flank pain. Denied fever,chills, headache , chest pain, SOB, abdominal pain, n/v/d/c, or urinary symptoms. Objective - Vital Signs/Intake and Output Vital Signs (last 24 hours): Temp Pulse Resp BP Pulse Ox 98.3 F 76 20 104/70 95 08/12/17 00:00 08/12/17 00:00 08/12/17 00:00 08/12/17 00:00 08/12/17 00:00 Intake and Output: 08/12/17 08/12/17 06:59 18:59 Intake Total 1580 Balance 1580 - Medications Medications: Current Medications Famotidine (Pepcid) 20 mg PO DAILY [facility] Last Admin: 08/11/17 10:09 Dose: 20 mg Heparin Sodium (Porcine) (Heparin) 5,000 units SC Q12 [facility] Last Admin: 08/11/17 21:49 Dose: 5,000 units Imipenem/Cilastatin Sodium 250 (mg/ Sodium Chloride) 100 mls @ 100 mls/hr IVPB Q6H [facility] Last Admin: 08/12/17 05:16 Dose: 100 mls/hr Sodium Chloride (Sodium Chloride 0.9%) 1,000 mls @ 100 mls/hr IV .Q10H [facility] Last Admin: 08/12/17 05:16 Dose: 100 mls/hr Pneumococcal Polyvalent Vaccine (Pneumovax 23 Vaccine) 0.5 ml IM .ONCE ONE Stop: 08/13/17 10:01 - Labs Labs: 08/12/17 06:23 08/11/17 06:16 PT 10.8 SECONDS (9.7-12.2) 08/10/17 20:33 INR 1.0 08/10/17 20:33 APTT 29 SECONDS (21-34) 08/10/17 20:33 - Additional Findings Additional findings: - Constitutional Appears: No Acute Distress - Head Exam Head Exam: NORMAL INSPECTION, NORMOCEPHALIC - Eye Exam Eye Exam: EOMI, Normal appearance, PERRL Pupil Exam: NORMAL ACCOMODATION - ENT Exam ENT Exam: Mucous Membranes Moist, Normal Exam - Respiratory Exam Respiratory Exam: Clear to Ausculation Bilateral, NORMAL BREATHING PATTERN. absent: Decreased Breath Sounds - Cardiovascular Exam Cardiovascular Exam: REGULAR RHYTHM, RRR, +S1, +S2 - GI/Abdominal Exam GI & Abdominal Exam: Soft, Normal Bowel Sounds. absent: Distended, Tenderness - Exam Exam: absent: Uretheral Discharge, Bladder Distension - Extremities Exam Extremities Exam: Normal Inspection. absent: Pedal Edema, Tenderness - Neurological Exam Neurological Exam: Alert, Awake, Oriented x3 - Psychiatric Exam Psychiatric exam: Normal Affect, Normal Mood - Skin Skin Exam: Dry, Intact, Normal Color, Warm Assessment and Plan - Assessment and Plan (Free Text) Plan: ESBL in URINE Assessment and Plan: Urine culture 08/08/17: ESBL + Contact precautions ID consulted, Dr Burns, recommendations appreciated Procal: 0.05 Blood cx - negative F/U repeat urine cx * NS @ 100cc/hr * Primaxin 500mg IVP Q6H - Dr. Burns approves abx regimen - recommended follow up with urology Status: Acute Elevated glucose level Assessment and Plan: Glucose 125 on admission HgA1C 5.7 Status: Acute History of recurrent UTIs Assessment and Plan: Pt with no PMD, encourage to enroll in [facility] and apply for [facility] care. Will need referral for urology Status: Acute Prophylactic measure Assessment and Plan: DVT: heparin 5000u sc q12 GI: pepcid 20mg po daily Diet: regular diet Status: Acute DW Dr. Abdulkadir Hobson DO, PGY-1 <Sherin Panchal V - Last Filed: 08/14/17 09:04> Objective - Vital Signs/Intake and Output Vital Signs (last 24 hours): Temp Pulse Resp BP Pulse Ox 98.2 F 67 20 101/64 98 08/14/17 07:54 08/14/17 07:54 08/14/17 07:54 08/14/17 07:54 08/14/17 07:54 Intake and Output: 08/14/17 08/14/17 06:59 18:59 Intake Total 1939 Balance 1939 - Medications Medications: Current Medications Famotidine (Pepcid) 20 mg PO DAILY [facility] Last Admin: 08/13/17 09:41 Dose: 20 mg Heparin Sodium (Porcine) (Heparin) 5,000 units SC Q12 [facility] Last Admin: 08/13/17 21:51 Dose: 5,000 units Imipenem/Cilastatin Sodium 250 (mg/ Sodium Chloride) 100 mls @ 100 mls/hr IVPB Q6H [facility] Last Admin: 08/14/17 06:03 Dose: 100 mls/hr Sodium Chloride (Sodium Chloride 0.9%) 1,000 mls @ 100 mls/hr IV .Q10H [facility] Last Admin: 08/14/17 06:01 Dose: Not Given - Labs Labs: 08/14/17 08:17 08/14/17 08:17 PT 10.8 SECONDS (9.7-12.2) 08/10/17 20:33 INR 1.0 08/10/17 20:33 APTT 29 SECONDS (21-34) 08/10/17 20:33 Attending/Attestation - Attestation I have personally seen and examined this patient.: Yes I have fully participated in the care of the patient.: Yes I have reviewed all pertinent clinical information, including history, physical exam and plan: Yes Notes (Text): This is late computer entry for 08/12/17. Patient seen, examined and case discussed with day-time resident on rounds. Patient has mild suprapubic pain, better than the day prior and flank pain starting to subside. Patient denies other acute complaints. Will continue Primaxin to cover for ESBL+ UTI F/u cultures Patient is on contact isolation. Assessment/Plan 1) ESBL+ in URINE Assessment and Plan: * Urine culture (08/08/17): ESBL + * Contact precautions * Blod Cultures (08/10/17): no growth thus far * Urine culture (08/10/17): pending * procalcitonin: 0.05 * NS @ 100cc/hr * Primaxin 500mg IVP Q6H (active since 08/11/17) Status: Acute 2) Impaired glucose tolerance Assessment and Plan: * Glucose 125 on admission * HgA1C 5.7 * Patient to repeat [id number] in one year to prevent overt diabetes Status: Acute 3) History of recurrent UTIs Assessment and Plan: * Pt with no PMD, encourage to enroll in [facility] to follow- up post hospitalization and apply for [facility] care * Patient will need to follow up with urology as outpatient Status: Acute 4) Prophylactic measure Assessment and Plan: * DVT: heparin 5000u sc q12 * GI: pepcid 20mg po daily * Diet: regular diet * Contact isolation Status: Acute
[2017-08-13] MEDS: Imipenem/Cilastatin 250 MG in Sodium Chloride 100 ML IVPB SCH ×4 (00:20→17:19)
[2017-08-13] MEDS: Sodium Chloride 0.9% 1,000 ML IV SCH ×4 (06:13→21:54)
[2017-08-13 07:21] LABS: BASO % 0.3 % (0.0-2.0); EOS # 0.2 K/uL (0.0-0.7); EOS % 2.6 % (0.0-4.0); HEMATOCRIT 35.8 % (34.0-47.0); LYMPH # 3.5 K/uL (1.0-4.3); MEAN CELL VOLUME 89.1 fL (81.0-99.0); MEAN CORPUSCULAR HGB CONC 33.7 g/dL (33.0-37.0); MEAN PLATELET VOLUME 7.8 fL (7.2-11.7); MONO # 0.4 K/uL (0.0-0.8); MONO % 5.2 % (0.0-10.0); NRBC % 0.1 % (0.0-2.0); RED CELL DISTRIBUTION WIDTH 12.8 % (11.5-14.5); WHITE BLOOD COUNT 8.2 K/uL (4.8-10.8)
[2017-08-13 07:42] LABS: CHLORIDE 102 mmol/L (98-107)
[2017-08-13 07:43] LABS: POTASSIUM 3.7 mmol/L (3.6-5.2); SODIUM 140 mmol/L (132-148)
[2017-08-13 07:45] LABS: BILIRUBIN,TOTAL 0.8 mg/dL (0.2-1.3); GFR AFRICAN-AMERICAN > 60
[2017-08-13 07:46] LABS: ALB/GLOB RATIO 1.2 (1.0-2.1); ALKALINE PHOSPHATASE 47 U/L (38-126); ALT/SGPT 36 U/L (9-52); AST/SGOT 22 U/L (14-36); BLOOD UREA NITROGEN 11 mg/dL (7-17); CALCIUM 8.7 mg/dl (8.6-10.4); CARBON DIOXIDE 21 mmol/L (22-30); GLUCOSE,RANDOM 85 mg/dL (65-105); PHOSPHOROUS 4.2 mg/dL (2.5-4.5); TOTAL PROTEIN 6.7 g/dL (6.3-8.3)
[2017-08-13 07:47] LABS: MAGNESIUM 1.5 mg/dL (1.6-2.3)
[2017-08-13] MEDS ORDERED: Pneumococcal 23-Valent Vaccine IM ONE (10:00)
[2017-08-13] MEDS: Magnesium Sulfate 1 gm in D5W 1 GM/100 ML BAG IVPB SCH ×2 (10:45→11:37)
--- NOTE | 2017-08-13 14:26 | CP.PCM.PN ---
<NasSmita - Last Filed: 08/13/17 14:28> Subjective - Date & Time of Evaluation Date of Evaluation: 08/13/17 Time of Evaluation: 14:24 - Subjective Subjective: Internal Medicine note for Dr. Panchal Patient seen and examined at bedside. She has some mild right sided flank pain. Denies Fever, chills, patient denies urinary problems, dysuria. Objective - Vital Signs/Intake and Output Vital Signs (last 24 hours): Temp Pulse Resp BP Pulse Ox 98.2 F 68 20 96/67 L 96 08/13/17 08:15 08/13/17 08:15 08/13/17 08:15 08/13/17 08:15 08/13/17 08:15 Intake and Output: 08/13/17 08/13/17 06:59 18:59 Intake Total 1850 1600 Balance 1850 1600 - Medications Medications: Current Medications Famotidine (Pepcid) 20 mg PO DAILY [facility] Last Admin: 08/13/17 09:41 Dose: 20 mg Heparin Sodium (Porcine) (Heparin) 5,000 units SC Q12 [facility] Last Admin: 08/13/17 09:41 Dose: 5,000 units Imipenem/Cilastatin Sodium 250 (mg/ Sodium Chloride) 100 mls @ 100 mls/hr IVPB Q6H [facility] Last Admin: 08/13/17 11:37 Dose: 100 mls/hr Sodium Chloride (Sodium Chloride 0.9%) 1,000 mls @ 100 mls/hr IV .Q10H [facility] Last Admin: 08/13/17 10:39 Dose: Not Given - Labs Labs: 08/13/17 07:02 08/13/17 07:02 PT 10.8 SECONDS (9.7-12.2) 08/10/17 20:33 INR 1.0 08/10/17 20:33 APTT 29 SECONDS (21-34) 08/10/17 20:33 - Constitutional Appears: Non-toxic - Head Exam Head Exam: NORMAL INSPECTION - Eye Exam Eye Exam: EOMI. absent: Normal appearance Pupil Exam: NORMAL ACCOMODATION, PERRL - ENT Exam ENT Exam: Mucous Membranes Moist. absent: Mucous Membranes Dry, Normal Oropharynx - Neck Exam Neck Exam: Full ROM. absent: Tenderness - Respiratory Exam Respiratory Exam: Clear to Ausculation Bilateral, Respiratory Distress, NORMAL BREATHING PATTERN. absent: Accessory Muscle Use - Cardiovascular Exam Cardiovascular Exam: REGULAR RHYTHM, +S1, +S2. absent: Bradycardia, Tachycardia - GI/Abdominal Exam GI & Abdominal Exam: Soft, Normal Bowel Sounds. absent: Tenderness Additional comments: no suprapubic tenderness. - Extremities Exam Extremities Exam: Full ROM, Normal Inspection. absent: Pedal Edema - Neurological Exam Neurological Exam: Alert, Awake, Oriented x3 - Psychiatric Exam Psychiatric exam: Normal Affect, Normal Mood - Skin Skin Exam: Dry, Intact, Normal Color, Warm Assessment and Plan - Assessment and Plan (Free Text) Assessment: ESBL in URINE Assessment and Plan: Urine culture 08/08/17: ESBL positive Contact precautions Dr. Burns: patient is to receive antibiotics for 5 days. Patient has one more dose and can be discharged tomorrow. 08/14 Procal: 0.05 Blood cx - negative Repeat Urine Cx Negative * NS @ 100cc/hr * Primaxin 500mg IVP Q6H - Dr. Burns approves abx regimen - recommended follow up with urology Status: Acute Elevated glucose level Assessment and Plan: Glucose 125 on admission HgA1C 5.7 Status: Acute History of recurrent UTIs Assessment and Plan: Pt with no PMD, encourage to enroll in [facility] [place] and apply for [facility] care. Will need referral for urology Status: Acute Prophylactic measure Assessment and Plan: DVT: heparin 5000u sc q12 GI: pepcid 20mg po daily Diet: regular diet Status: Acute DW Dr. Abdulkadir Lovell, DO PGY1 <Sherin Pancahl V - Last Filed: 08/14/17 09:10> Objective - Vital Signs/Intake and Output Vital Signs (last 24 hours): Temp Pulse Resp BP Pulse Ox 98.2 F 67 20 101/64 98 08/14/17 07:54 08/14/17 07:54 08/14/17 07:54 08/14/17 07:54 08/14/17 07:54 Intake and Output: 08/14/17 08/14/17 06:59 18:59 Intake Total 1939 Balance 1939 - Medications Medications: Current Medications Famotidine (Pepcid) 20 mg PO DAILY [facility] Last Admin: 08/13/17 09:41 Dose: 20 mg Heparin Sodium (Porcine) (Heparin) 5,000 units SC Q12 [facility] Last Admin: 08/13/17 21:51 Dose: 5,000 units Imipenem/Cilastatin Sodium 250 (mg/ Sodium Chloride) 100 mls @ 100 mls/hr IVPB Q6H [facility] Last Admin: 08/14/17 06:03 Dose: 100 mls/hr Sodium Chloride (Sodium Chloride 0.9%) 1,000 mls @ 100 mls/hr IV .Q10H [facility] Last Admin: 08/14/17 06:01 Dose: Not Given - Labs Labs: 08/14/17 08:17 08/14/17 08:17 PT 10.8 SECONDS (9.7-12.2) 08/10/17 20:33 INR 1.0 08/10/17 20:33 APTT 29 SECONDS (21-34) 08/10/17 20:33 Attending/Attestation - Attestation I have personally seen and examined this patient.: Yes I have fully participated in the care of the patient.: Yes I have reviewed all pertinent clinical information, including history, physical exam and plan: Yes Notes (Text): This is late computer entry for 08/13/17. Patient seen, examined and case discussed with day-time resident. Patient reports she is felling better. She reports she is feeling better. She is very eager to go home. Resident spoke with ID, per ID, likely ESBL+ urine culture from 08/08/17 is a contaminant. Per ID, recommend to receive total of 5 days of IV abx. Patient's last dose is for tomorrow and can be discharge from his perspective. Patient will need to follow-up outpatient establish care with the [facility] and referral to urology for frequent UTs. Assessment/Plan 1) ESBL+ in URINE Assessment and Plan: * Urine culture (08/08/17): ESBL + * Contact precautions * Blod Cultures (08/10/17): no growth thus far * Urine culture (08/10/17): negative * procalcitonin: 0.05 * NS @ 100cc/hr * Primaxin 500mg IVP Q6H (active since 08/11/17) * CT abdomen/pelvis w/o PO and IV contrast (08/10/17): No CT evidence of urolithiasis. (incidental findings noted on CT scan) Status: Acute 2) Impaired glucose tolerance Assessment and Plan: * Glucose 125 on admission * HgA1C 5.7 * Patient to repeat [id number] in one year to prevent overt diabetes Status: Acute 3) History of recurrent UTIs Assessment and Plan: * Pt with no PMD, encourage to enroll in [facility] to follow- up post hospitalization and apply for [facility] care * Patient will need to follow up with urology as outpatient Status: Acute 4) Prophylactic measure Assessment and Plan: * DVT: heparin 5000u sc q12 * GI: pepcid 20mg po daily * Diet: regular diet * Contact isolation Status: Acute
--- NOTE | 2017-08-13 14:58 | CP.PCM.PN ---
Subjective - Date & Time of Evaluation Date of Evaluation: 08/13/17 Time of Evaluation: 09:00 - Subjective Subjective: improving repeat cultures neg thus far Objective - Vital Signs/Intake and Output Vital Signs (last 24 hours): Temp Pulse Resp BP Pulse Ox 98.2 F 68 20 96/67 L 96 08/13/17 08:15 08/13/17 08:15 08/13/17 08:15 08/13/17 08:15 08/13/17 08:15 Intake and Output: 08/13/17 08/13/17 06:59 18:59 Intake Total 1850 1600 Balance 1850 1600 - Medications Medications: Current Medications Famotidine (Pepcid) 20 mg PO DAILY [facility] Last Admin: 08/13/17 09:41 Dose: 20 mg Heparin Sodium (Porcine) (Heparin) 5,000 units SC Q12 [facility] Last Admin: 08/13/17 09:41 Dose: 5,000 units Imipenem/Cilastatin Sodium 250 (mg/ Sodium Chloride) 100 mls @ 100 mls/hr IVPB Q6H [facility] Last Admin: 08/13/17 11:37 Dose: 100 mls/hr Sodium Chloride (Sodium Chloride 0.9%) 1,000 mls @ 100 mls/hr IV .Q10H [facility] Last Admin: 08/13/17 10:39 Dose: Not Given - Labs Labs: 08/13/17 07:02 08/13/17 07:02 PT 10.8 SECONDS (9.7-12.2) 08/10/17 20:33 INR 1.0 08/10/17 20:33 APTT 29 SECONDS (21-34) 08/10/17 20:33 - Constitutional Appears: Non-toxic, Chronically Ill - Head Exam Head Exam: NORMOCEPHALIC - Eye Exam Eye Exam: PERRL - ENT Exam ENT Exam: Mucous Membranes Dry - Neck Exam Neck Exam: absent: Lymphadenopathy - Respiratory Exam Respiratory Exam: Decreased Breath Sounds, Clear to Ausculation Bilateral - Cardiovascular Exam Cardiovascular Exam: REGULAR RHYTHM - GI/Abdominal Exam GI & Abdominal Exam: Distended, Soft - Rectal Exam Rectal Exam: Deferred - Exam Exam: NORMAL INSPECTION - Extremities Exam Extremities Exam: absent: Pedal Edema - Back Exam Back Exam: absent: CVA tenderness (L), CVA tenderness (R) - Neurological Exam Neurological Exam: Alert, Awake, Oriented x3 Assessment and Plan (1) ESBL (extended spectrum beta-lactamase) producing bacteria infection Status: Acute (2) History of recurrent UTIs Status: Acute
[2017-08-14] MEDS: Imipenem/Cilastatin 250 MG in Sodium Chloride 100 ML IVPB SCH ×2 (00:03→06:03)
[2017-08-14] MEDS: Sodium Chloride 0.9% 1,000 ML IV SCH (06:01)
[2017-08-14 07:56] VITALS: BP 101/64; PULSE 67; TEMP 98.2; O2SAT 98
--- NOTE | 2017-08-14 08:04 | CP.PCM.DIS ---
<Sherin Panchal V - Last Filed: 08/14/17 09:10> Provider - Provider Date of Admission: 08/10/17 22:53 Attending physician: Dalton Abdalla MD Diagnosis - Discharge Diagnosis (1) Impaired glucose tolerance Status: Chronic (2) ESBL (extended spectrum beta-lactamase) producing bacteria infection Status: Resolved (3) History of recurrent UTIs Status: Chronic Hospital Course - Lab Results Lab Results: Micro Results 08/10/17 20:30 Blood Blood Culture - Preliminary NO GROWTH AFTER 3 DAYS 08/10/17 20:00 Blood Blood Culture - Preliminary NO GROWTH AFTER 3 DAYS 08/10/17 20:28 Urine Urine Culture - Final No Growth (<1,000 CFU/ML) Most Recent Lab Values WBC 7.5 K/uL (4.8-10.8) 08/14/17 08: RBC 4.08 Mil/uL (3.80-5.20) 08/14/17 08:17 Hgb 12.3 g/dL (11.0-16.0) 08/14/17 08: Hct 36.1 % (34.0-47.0) 08/14/17 08:17 MCV 88.5 fL (81.0-99.0) 08/14/17 08: MCH 30.0 pg (27.0-31.0) 08/14/17 08: MCHC 33.9 g/dL (33.0-37.0) 08/14/17 08:17 RDW 13.3 % (11.5-14.5) 08/14/17 08:17 Plt Count 209 K/uL (130-400) 08/14/17 08: MPV 7.7 fL (7.2-11.7) 08/14/17 08: Neut % (Auto) 48.7 % (50.0-75.0) L 08/14/17 08: Lymph % (Auto) 43.2 % (20.0-40.0) H 08/14/17 08:17 Kingfisher % (Auto) 5.1 % (0.0-10.0) 08/14/17 08: Eos % (Auto) 2.7 % (0.0-4.0) 08/14/17 08: Baso % (Auto) 0.3 % (0.0-2.0) 08/14/17 08:17 Neut # 3.6 K/uL (1.8-7.0) 08/14/17 08:17 Lymph # 3.2 K/uL (1.0-4.3) 08/14/17 08:17 [place] # 0.4 K/uL (0.0-0.8) 08/14/17 08:17 Eos # 0.2 K/uL (0.0-0.7) 08/14/17 08:17 Baso # 0.0 K/uL (0.0-0.2) 08/14/17 08:17 PT 10.8 SECONDS (9.7-12.2) 08/10/17 20:33 INR 1.0 08/10/17 20:33 APTT 29 SECONDS (21-34) 08/10/17 20:33 Sodium 139 mmol/L (132-148) 08/14/17 08:17 Potassium 3.9 mmol/L (3.6-5.2) 08/14/17 08:17 Chloride 103 mmol/L (98-107) 08/14/17 08:17 Carbon Dioxide 21 mmol/L (22-30) L 08/14/17 08:17 Anion Gap 19 (10-20) 08/14/17 08:17 BUN 13 mg/dL (7-17) 08/14/17 08:17 Creatinine 0.5 MG/DL (0.7-1.2) L 08/14/17 08:17 Est GFR ( Amer) > 60 08/14/17 08:17 Est GFR (Non-Af Amer) > 60 08/14/17 08:17 POC Glucose (mg/dL) 125 mg/dL (65-110) H 08/10/17 20:07 Random Glucose 84 mg/dL (65-105) 08/14/17 08:17 Hemoglobin A1c 5.7 % (4.2-6.5) 08/11/17 07:42 Calcium 8.5 mg/dl (8.6-10.4) L 08/14/17 08:17 Phosphorus 4.1 mg/dL (2.5-4.5) 08/14/17 08:17 Magnesium 1.7 mg/dL (1.6-2.3) 08/14/17 08:17 Total Bilirubin 1.0 mg/dL (0.2-1.3) 08/14/17 08:17 AST 26 U/L (14-36) 08/14/17 08:17 ALT 39 U/L (9-52) 08/14/17 08:17 Alkaline Phosphatase 45 U/L (38-126) 08/14/17 08:17 Total Protein 6.7 g/dL (6.3-8.3) 08/14/17 08:17 Albumin 3.8 g/dL (3.5-5.0) 08/14/17 08:17 Globulin 2.9 gm/dL (2.2-3.9) 08/14/17 08:17 Albumin/Globulin Ratio 1.3 (1.0-2.1) 08/14/17 08:17 Lipase 97 U/L (23-300) 08/10/17 20:33 Procalcitonin 0.05 NG/ML (0.19-0.49) L 08/11/17 07:42 Urine Color Straw (YELLOW) 08/11/17 22:30 Urine Clarity Clear (Clear) 08/11/17 22:30 Urine pH 7.0 (5.0-8.0) 08/11/17 22:30 Ur Specific [place] 1.006 (1.003-1.030) 08/11/17 22:30 Urine Protein Negative mg/dL (NEGATIVE) 08/11/17 22:30 Urine Glucose (UA) Normal mg/dL (Normal) 08/11/17 22:30 Urine Ketones Negative mg/dL (NEGATIVE) 08/11/17 22:30 Urine Blood Trace (NEGATIVE) H 08/11/17 22:30 Urine Nitrate Negative (NEGATIVE) 08/11/17 22:30 Urine Bilirubin Negative (NEGATIVE) 08/11/17 22:30 Urine Urobilinogen Normal mg/dL (0.2-1.0) 08/11/17 22:30 Ur Leukocyte Esterase Neg Irwin/uL (Negative) 08/11/17 22:30 Urine WBC (Auto) < 1 /hpf (0-5) 08/11/17 22:30 Urine RBC (Auto) 2 /hpf (0-3) 08/11/17 22:30 Ur Squamous Epith Cells 2 /hpf (0-5) 08/10/17 20:20 Urine HCG, Qual Negative (NEGATIVE) 08/10/17 20:20 Discharge Plan - Follow Up Plan Condition: STABLE Disposition: HOME/ ROUTINE Additional Instructions: Patient is safe for discharge. She completed her antibiotic course in the hospital and does not need additional medications to be discharged with. She is to make an appointment at our [facility], to follow up and receive a referral for urology. El paciente es seguro para el toribio. Mirella complet cotter curso de antibiticos en el hospital y no necesita medicamentos adicionales para ser dado de toribio con. Mirella debe hacer jaxon nathan en nuestro [facility], para henrique seguimiento y recibir jaxon referencia para la urologa. Referrals: [facility] [Outside] - 1 Week Attending/Attestation - Attestation I have personally seen and examined this patient.: Yes I have fully participated in the care of the patient.: Yes I have reviewed all pertinent clinical information, including history, physical exam and plan: Yes Notes (Text): Patient seen, examined and case discussed with day-time resident. Patient seen this morning. Patient denies acute complaints. Patient reports she feels so much better. Denies flank pain, mild suprapubic pain. Tolerating breakfast at bedside. Denies constipation, denies abdominal pain, denies nausea , denies headache, denies chest pain, denies shortness of breathe. Patient to finish IV abx today, patient's last dose per ID. No new prescriptions per ID. Patient recommended to followup and establish care in the [facility] ([phone]) within one week of discharge. Patient will need referral to urologist given her history of frequent urinary tract infections. There is no stones noted on her CT scan during hospitalization. Patient is afebrile. Repeat cultures are negative. Patient will need repeat [id number] in one year to prevent risk to becoming a diabetic. Discharge order and discharge instructions discussed with day-time resident and patient at bedside. Patient verbalized understanding and agrees with the plan. No new prescriptions upon discharge. This is a summary of patient's hospitalization. Please see EMR for further details. Discharge diagnoses: Assessment/Plan 1) ESBL+ in URINE -->Resolved Assessment and Plan: * Urine culture (08/08/17): ESBL + * d/c Contact precautions * Blod Cultures (08/10/17): no growth X3 days * Urine culture (08/10/17): negative * procalcitonin: 0.05 * NS @ 100cc/hr * Primaxin 500mg IVP Q6H (active since 08/11/17)-->patient to finish last dose today * CT abdomen/pelvis w/o PO and IV contrast (08/10/17): No CT evidence of urolithiasis. (incidental findings noted on CT scan) Status: Acute 2) Impaired glucose tolerance Assessment and Plan: * Glucose 125 on admission * HgA1C 5.7 * Patient to repeat [id number] in one year to prevent overt diabetes Status: Acute 3) History of recurrent UTIs Assessment and Plan: * Pt with no PMD, encourage to enroll in [facility] to follow- up post hospitalization and apply for [facility] care * Patient will need to follow up with urology as outpatient Status: Acute 4) Prophylactic measure Assessment and Plan: * DVT: heparin 5000u sc q12 * GI: pepcid 20mg po daily * Diet: regular diet * Contact isolation Status: Acute <Michelle Hobson - Last Filed: 08/14/17 09:51> Provider - Provider Date of Admission: 08/10/17 22:53 Attending physician: Dalton Abdalla MD Consults: Dr. Burns - ID Time Spent in preparation of Discharge (in minutes): 55 Hospital Course - Lab Results Lab Results: Micro Results 08/10/17 20:30 Blood Blood Culture - Preliminary NO GROWTH AFTER 3 DAYS 08/10/17 20:00 Blood Blood Culture - Preliminary NO GROWTH AFTER 3 DAYS 08/10/17 20:28 Urine Urine Culture - Final No Growth (<1,000 CFU/ML) Most Recent Lab Values WBC 8.2 K/uL (4.8-10.8) 08/13/17 07:02 RBC 4.02 Mil/uL (3.80-5.20) 08/13/17 07:02 Hgb 12.1 g/dL (11.0-16.0) 08/13/17 07:02 Hct 35.8 % (34.0-47.0) 08/13/17 07:02 MCV 89.1 fL (81.0-99.0) 08/13/17 07:02 MCH 30.0 pg (27.0-31.0) 08/13/17 07:02 MCHC 33.7 g/dL (33.0-37.0) 08/13/17 07:02 RDW 12.8 % (11.5-14.5) 08/13/17 07:02 Plt Count 223 K/uL (130-400) 08/13/17 07:02 MPV 7.8 fL (7.2-11.7) 08/13/17 07:02 Neut % (Auto) 48.9 % (50.0-75.0) L 08/13/17 07:02 Lymph % (Auto) 43.0 % (20.0-40.0) H 08/13/17 07:02 Kingfisher % (Auto) 5.2 % (0.0-10.0) 08/13/17 07:02 Eos % (Auto) 2.6 % (0.0-4.0) 08/13/17 07:02 Baso % (Auto) 0.3 % (0.0-2.0) 08/13/17 07:02 Neut # 4.0 K/uL (1.8-7.0) 08/13/17 07:02 Lymph # 3.5 K/uL (1.0-4.3) 08/13/17 07:02 [place] # 0.4 K/uL (0.0-0.8) 08/13/17 07:02 Eos # 0.2 K/uL (0.0-0.7) 08/13/17 07:02 Baso # 0.0 K/uL (0.0-0.2) 08/13/17 07:02 PT 10.8 SECONDS (9.7-12.2) 08/10/17 20:33 INR 1.0 08/10/17 20:33 APTT 29 SECONDS (21-34) 08/10/17 20:33 Sodium 140 mmol/L (132-148) 08/13/17 07:02 Potassium 3.7 mmol/L (3.6-5.2) 08/13/17 07:02 Chloride 102 mmol/L (98-107) 08/13/17 07:02 Carbon Dioxide 21 mmol/L (22-30) L 08/13/17 07:02 Anion Gap 21 (10-20) H 08/13/17 07:02 BUN 11 mg/dL (7-17) 08/13/17 07:02 Creatinine 0.6 MG/DL (0.7-1.2) L 08/13/17 07:02 Est GFR ( Amer) > 60 08/13/17 07:02 Est GFR (Non-Af Amer) > 60 08/13/17 07:02 POC Glucose (mg/dL) 125 mg/dL (65-110) H 08/10/17 20:07 Random Glucose 85 mg/dL (65-105) 08/13/17 07:02 Hemoglobin A1c 5.7 % (4.2-6.5) 08/11/17 07:42 Calcium 8.7 mg/dl (8.6-10.4) 08/13/17 07:02 Phosphorus 4.2 mg/dL (2.5-4.5) 08/13/17 07:02 Magnesium 1.5 mg/dL (1.6-2.3) L 08/13/17 07:02 Total Bilirubin 0.8 mg/dL (0.2-1.3) 08/13/17 07:02 AST 22 U/L (14-36) 08/13/17 07:02 ALT 36 U/L (9-52) 08/13/17 07:02 Alkaline Phosphatase 47 U/L (38-126) 08/13/17 07:02 Total Protein 6.7 g/dL (6.3-8.3) 08/13/17 07:02 Albumin 3.7 g/dL (3.5-5.0) 08/13/17 07:02 Globulin 3.0 gm/dL (2.2-3.9) 08/13/17 07:02 Albumin/Globulin Ratio 1.2 (1.0-2.1) 08/13/17 07:02 Lipase 97 U/L (23-300) 08/10/17 20:33 Procalcitonin 0.05 NG/ML (0.19-0.49) L 08/11/17 07:42 Urine Color Straw (YELLOW) 08/11/17 22:30 Urine Clarity Clear (Clear) 08/11/17 22:30 Urine pH 7.0 (5.0-8.0) 08/11/17 22:30 Ur Specific [place] 1.006 (1.003-1.030) 08/11/17 22:30 Urine Protein Negative mg/dL (NEGATIVE) 08/11/17 22:30 Urine Glucose (UA) Normal mg/dL (Normal) 08/11/17 22:30 Urine Ketones Negative mg/dL (NEGATIVE) 08/11/17 22:30 Urine Blood Trace (NEGATIVE) H 08/11/17 22:30 Urine Nitrate Negative (NEGATIVE) 08/11/17 22:30 Urine Bilirubin Negative (NEGATIVE) 08/11/17 22:30 Urine Urobilinogen Normal mg/dL (0.2-1.0) 08/11/17 22:30 Ur Leukocyte Esterase Neg Irwin/uL (Negative) 08/11/17 22:30 Urine WBC (Auto) < 1 /hpf (0-5) 08/11/17 22:30 Urine RBC (Auto) 2 /hpf (0-3) 08/11/17 22:30 Ur Squamous Epith Cells 2 /hpf (0-5) 08/10/17 20:20 Urine HCG, Qual Negative (NEGATIVE) 08/10/17 20:20 - Hospital Course Hospital Course: Upon Admission: CC: I was called back 36 yo F with a PMHx of recurrent UTI's returns to the ED because her urine culture from a few days ago has grown EColi + for ESBL. She presented to the ED on 08/08 for dysuria and urinary frequency and was sent home on Cipro and Flagyl , however the patient returns today for an antibiotic change more suited to cover for + ESBL. Today she complains of dysuria, urinary frequency, bladder fullness, and headache. She says she gets a UTI every 2 months which she treats with over the counter anti-inflammatory meds. She does not have a PMD. Associated symptoms include low back pain and abdominal pain in the hypogastric region. She denies gross hematuria, nausea, vomiting, flank pain, diarrhea, fever, chills. 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 ESBL in URINE Assessment and Plan: Urine culture 08/08/17: ESBL positive Contact precautions Dr. Burns: patient is to receive antibiotics for 5 days. Patient has one more dose and can be discharged tomorrow. 08/14 Procal: 0.05 Blood cx - negative Repeat Urine Cx Negative * NS @ 100cc/hr * Primaxin 500mg IVP Q6H - Dr. uBrns approves abx regimen patient completed 5/ 5 day course- recommended follow up with urology Status: Acute Elevated glucose level Assessment and Plan: Glucose 125 on admission HgA1C 5.7 Patient is to have this repeat in 1 year. Status: Acute History of recurrent UTIs Assessment and Plan: Pt with no PMD, encourage to enroll in [facility] and apply for [facility] [place]. Will need referral for urology Status: Acute This is a brief summary of the patient's hospital course, please review EMR for full record. Discharge Exam - Additional Findings Additional findings: - Constitutional Appears: Non-toxic - Head Exam Head Exam: NORMAL INSPECTION - Eye Exam Eye Exam: EOMI. absent: Normal appearance Pupil Exam: NORMAL ACCOMODATION, PERRL - ENT Exam ENT Exam: Mucous Membranes Moist. absent: Mucous Membranes Dry, Normal Oropharynx - Neck Exam Neck Exam: Full ROM. absent: Tenderness - Respiratory Exam Respiratory Exam: Clear to Ausculation Bilateral, Respiratory Distress, NORMAL BREATHING PATTERN. absent: Accessory Muscle Use - Cardiovascular Exam Cardiovascular Exam: REGULAR RHYTHM, +S1, +S2. absent: Bradycardia, Tachycardia - GI/Abdominal Exam GI & Abdominal Exam: Soft, Normal Bowel Sounds. absent: Tenderness Additional comments: no suprapubic tenderness. - Extremities Exam Extremities Exam: Full ROM, Normal Inspection. absent: Pedal Edema - Neurological Exam Neurological Exam: Alert, Awake, Oriented x3 - Psychiatric Exam Psychiatric exam: Normal Affect, Normal Mood - Skin Skin Exam: Dry, Intact, Normal Color, Warm
[2017-08-14 08:29] LABS: BASO % 0.3 % (0.0-2.0); EOS # 0.2 K/uL (0.0-0.7); EOS % 2.7 % (0.0-4.0); HEMATOCRIT 36.1 % (34.0-47.0); LYMPH # 3.2 K/uL (1.0-4.3); LYMPH % 43.2 % (20.0-40.0); MEAN CELL VOLUME 88.5 fL (81.0-99.0); MEAN CORPUSCULAR HGB CONC 33.9 g/dL (33.0-37.0); MEAN PLATELET VOLUME 7.7 fL (7.2-11.7); MONO # 0.4 K/uL (0.0-0.8); MONO % 5.1 % (0.0-10.0); RED CELL DISTRIBUTION WIDTH 13.3 % (11.5-14.5); WHITE BLOOD COUNT 7.5 K/uL (4.8-10.8)
[2017-08-14 08:49] LABS: CHLORIDE 103 mmol/L (98-107); POTASSIUM 3.9 mmol/L (3.6-5.2); SODIUM 139 mmol/L (132-148)
[2017-08-14 08:51] LABS: GFR AFRICAN-AMERICAN > 60
[2017-08-14 08:52] LABS: ALB/GLOB RATIO 1.3 (1.0-2.1); ALKALINE PHOSPHATASE 45 U/L (38-126); ALT/SGPT 39 U/L (9-52); AST/SGOT 26 U/L (14-36); BLOOD UREA NITROGEN 13 mg/dL (7-17); CARBON DIOXIDE 21 mmol/L (22-30); GLUCOSE,RANDOM 84 mg/dL (65-105); PHOSPHOROUS 4.1 mg/dL (2.5-4.5); TOTAL PROTEIN 6.7 g/dL (6.3-8.3)
[2017-08-14 08:53] LABS: CALCIUM 8.5 mg/dl (8.6-10.4); MAGNESIUM 1.7 mg/dL (1.6-2.3)
== END 2017-08-14 11:30 | disposition home or self-care (01) | DRG 321 ==
LOC: C.ER 17:47 → C.9E 22:53 → C.3T 08-11 05:41
PROVIDERS: ADMIT Family Medicine; ATTEND Family Medicine
DX: N39.0 Urinary tract infection, site not specified (principal)

== ENCOUNTER 2017-10-07 17:13 | Emergency (ER) | payer OTHER ==
--- NOTE | 2017-10-07 17:27 | C.PDOC ---
History Of Present Illness 36 year old female presents to the ED c/o urinary frequency, burning sensation and itching for the past 3 days. Patient has a Hx of frequent UTIs (every few months) with a recent admission for ESBL+; has not followed up since discharge. (+) bladder fullness. Notes she took Diflucan yesterday with some improvement. notes h/o cystoscopy with "inflammation" and "polyps" two years ago. She denies any vaginal discharge or bleeding. 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 denies: Fever, Nausea, Vomiting, Back Pain Recent travel outside of the [place]: No Additional History Per: Patient Abnormal Vaginal Bleeding: No Past Medical History Reviewed: Historical Data, Nursing Documentation, Vital Signs Vital Signs: Last Vital Signs Temp 98.4 F 10/07/17 17:15 Pulse 75 10/07/17 17:15 Resp 20 10/07/17 17:15 BP 100/68 10/07/17 17:15 Pulse Ox 99 10/07/17 18:32 - Medical History PMH: No Chronic Diseases Surgical History: Family History: States: Unknown Family Hx - Social History Hx Alcohol Use: No Hx Substance Use: No - Immunization History Hx Tetanus Toxoid Vaccination: No Hx Influenza Vaccination: No Hx Pneumococcal Vaccination: No Review Of Systems Constitutional: Negative for: Fever, Chills Gastrointestinal: Negative for: Nausea, Vomiting, Abdominal Pain Genitourinary: Positive for: Dysuria, Frequency. 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 -UA ordered. -Urine culture collected. Discussed with pt, no signs of UTI on UA. Exam shows vulvocandidiasis. Previous visits evaluated. Discussed with pt urine will be sent for culture, will not give abx today which can worsen candidiasis . Instructed to follow up with clinic in 1-2 days or return to ER if symtpoms persist or worsen. Case discussed with Dr Simmons, agreed upon plan and discharge. Disposition - Disposition Referrals: [facility] [Outside] Disposition: HOME/ ROUTINE Disposition Time: 18:29 Condition: STABLE Additional Instructions: Vaya a cotter mdico o la clnica en 1-3 santizo sin falta, para mas evaluacin. Macclenny los medicamentos michael indicado. Volver a la elvis de emergencia en cualquier momento si los sntomas persisten o empeoran. Prescriptions: Fluconazole [Diflucan] 150 mg PO DAILY #1 tab Miconazole [Miconazole 7] 100 mg VG HS #7 sup Phenazopyridine HCl [Pyridium] 100 mg PO TID #6 tablet Instructions: Vulvovaginal Candidiasis (ED) Forms: [employer] (Singaporean) Print Language: EQUATORIAL GUINEAN - Clinical Impression Clinical Impression: Vulvovaginal candidiasis - PA / SYSTEMS INTEGRATION MANAGER / Resident Statement MD/DO has reviewed & agrees with the documentation as recorded. - Scribe Statement The provider has reviewed the documentation as recorded by the Scribe David Vázquez All medical record entries made by the Scribe were at my direction and personally dictated by me. I have reviewed the chart and agree that the record accurately reflects my personal performance of the history, physical exam, medical decision making, and the department course for this patient. I have also personally directed, reviewed, and agree with the discharge instructions and disposition.
[2017-10-07 17:48] LABS: RBC URINE 10 /hpf (0-3); URINE BACTERIA RARE (<OCC); URINE BILIRUBIN NEGATIVE (NEGATIVE); URINE BLOOD 2+ (NEGATIVE); URINE COLOR Yellow (YELLOW); URINE GLUCOSE (UA) NORMAL (Normal); URINE KETONE NEGATIVE (NEGATIVE); URINE LEUKOCYTE ESTERASE NEG Leu/uL (Negative); URINE PROTEIN NEGATIVE (NEGATIVE); URINE UROBILINOGEN NORMAL mg/dL (0.2-1.0); WBC URINE 1 /hpf (0-5)
[2017-10-07 18:36] VITALS: BP 132/70; PULSE 77; RESP 18; TEMP 98
[2017-10-07 18:37] VITALS: O2SAT 99
== END 2017-10-07 18:36 | disposition home or self-care (01) ==
LOC: C.ER 17:13
DX: B37.3 Candidiasis of vulva and vagina (principal)

== ENCOUNTER 2018-07-11 11:23 | Emergency (ER) | payer OTHER ==
[2018-07-11 11:23] VITALS: BMI 23.4
[2018-07-11 11:29] VITALS: BP 119/80; PULSE 78; RESP 18; TEMP 97.9; O2SAT 99
[2018-07-11 11:55] LABS: HCG,QUALITATIVE URINE NEGATIVE (NEGATIVE)
[2018-07-11 11:56] LABS: SQUAMOUS EPITHIAL < 1 /hpf (0-5); URINE BILIRUBIN NEGATIVE (NEGATIVE); URINE BLOOD 2+ (NEGATIVE); URINE CLARITY Clear (Clear); URINE COLOR Straw (YELLOW); URINE GLUCOSE (UA) NORMAL (Normal); URINE LEUKOCYTE ESTERASE TRACE Leu/uL (Negative); URINE PROTEIN NEGATIVE (NEGATIVE); URINE UROBILINOGEN NORMAL mg/dL (0.2-1.0)
--- NOTE | 2018-07-11 14:15 | C.PDOC ---
History Of Present Illness 37 y/o female presents to ED with c/o dysuria for 3 days associated with suprapubic pain. Patient is tolerating po intake and denies nausea, vomiting, fever, vaginal bleeding, vaginal discharge or any other complaints at this time. Time Seen by Provider: 07/11/18 11:39 Chief Complaint (Nursing): Female Genitourinary History Per: Patient History/Exam Limitations: no limitations Onset/Duration Of Symptoms: Days Current Symptoms Are (Timing): Still Present Past Medical History Reviewed: Historical Data, Nursing Documentation, Vital Signs Vital Signs: Last Vital Signs Temp 97.9 F 07/11/18 11:37 Pulse 78 07/11/18 11:37 Resp 18 07/11/18 11:37 BP 119/80 07/11/18 11:37 Pulse Ox 99 07/11/18 14:18 - Medical History PMH: No Chronic Diseases Surgical History: Family History: States: No Known Family Hx - Social History Hx Alcohol Use: No Hx Substance Use: No - Immunization History Hx Tetanus Toxoid Vaccination: No Hx Influenza Vaccination: No Hx Pneumococcal Vaccination: No Review Of Systems Constitutional: Negative for: Fever, Chills Gastrointestinal: Positive for: Abdominal Pain. Negative for: Nausea, Vomiting Genitourinary: Positive for: Dysuria. Negative for: Hematuria, Vaginal Discharge, Vaginal Bleeding Musculoskeletal: Negative for: Back Pain Skin: Negative for: Rash Physical Exam - Physical Exam Appears: Non-toxic, No Acute Distress Skin: Warm, Dry, No Rash Head: Atraumatic, Normacephalic Eye(s): bilateral: Normal Inspection Oral Mucosa: Moist Cardiovascular: Rhythm Regular Respiratory: Normal Breath Sounds, No Rales, No Rhonchi, No Wheezing Gastrointestinal/Abdominal: Soft, No Tenderness, No Guarding, No Rebound Back: No CVA Tenderness Extremity: Normal ROM, Capillary Refill (<2 seconds) Neurological/Psych: Oriented x3, Normal Speech, Normal Cognition ED Course And Treatment O2 Sat by Pulse Oximetry: 99 (RA) Pulse Ox Interpretation: Normal Disposition - Disposition Referrals: [facility] [Outside] [facility] [Outside] Disposition: HOME/ ROUTINE Disposition Time: 12:00 Condition: GOOD Additional Instructions: EDDIE KEITH, thank you for letting us take care of you today. The emergency medical care you received today was directed at your acute symptoms. If you were prescribed any medication, please fill it and take as directed. It may take several days for your symptoms to resolve. Return to the Emergency Department if your symptoms worsen, do not improve, or if you have any other problems. Please contact your doctor or call one of the physicians/clinics you have been referred to that are listed on the Patient Visit Information form that is included in your discharge packet. Bring any paperwork you were given at discharge with you along with any medications you are taking to your follow up visit. Our treatment cannot replace ongoing medical care by a primary care provider outside of the emergency department. Thank you for allowing the [facility] team to be part of your care today. Follow up with your clinic in 3-4 days for re-evaluation and further management. EDDIE [place] KEITH, raven por dejarnos atenderlo hoy. La atencin m dica de emergencia que recibi hoy estaba dirigida a lea sntomas agudos. Si le prescribieron algn medicamento, llnelo y tome segn las indicaciones. Lea s ntomas pueden tardar varios santizo en resolverse. Regrese al Departamento de Emergencia si lea sntomas empeoran, no mejoran o si tiene algn otro problema. Comunquese con cotter mdico o llame a eliana de los mdicos / clnicas a los que geiger sido referido que figura en el formulario de Informacin de visita del paciente que se incluye en cotter paquete de toribio. Traiga todos los documentos que recibi al momento del toribio junto con los medicamentos que est tomando en cotter visita de seguimiento. Nuestro tratamiento no puede reemplazar la atencin mdica en curso por un proveedor de atencin primaria fuera del departamento de emergencia. Raven por permitir que el equipo de [facility] sea parte de cotter cuidado hoy. Liv un seguimiento con cotter clnica en 3-4 santizo para jaxon nueva evaluacin y ms administracin. Prescriptions: Ibuprofen [Motrin] 600 mg PO Q6 PRN #20 tab PRN Reason: Pain, Moderate (4-7) Nitrofurantoin Macrocrystals [Macrobid] 100 mg PO BID #14 cap Instructions: Acute Cystitis (DC) Forms: Gen Discharge Inst French, [employer] (French) Print Language: PALESTINIAN - Clinical Impression Clinical Impression: UTI (urinary tract infection) - Scribe Statement The provider has reviewed the documentation as recorded by the Soniaibmitchell Uribe All medical record entries made by the Soniaibmitchell were at my direction and personally dictated by me. I have reviewed the chart and agree that the record accurately reflects my personal performance of the history, physical exam, medical decision making, and the department course for this patient. I have also personally directed, reviewed, and agree with the discharge instructions and disposition.
== END 2018-07-11 12:24 | disposition home or self-care (01) ==
LOC: C.ER 11:23
DX: N39.0 Urinary tract infection, site not specified (principal)

== ENCOUNTER 2018-08-28 11:46 | Emergency (ER) | payer OTHER ==
[2018-08-28 11:50] VITALS: BMI 21.2
[2018-08-28 12:53] LABS: SQUAMOUS EPITHIAL 2 /hpf (0-5); URINE BILIRUBIN NEGATIVE (NEGATIVE); URINE BLOOD 3+ (NEGATIVE); URINE CLARITY Hazy (Clear); URINE COLOR Yellow (YELLOW); URINE GLUCOSE (UA) NORMAL (Normal); URINE LEUKOCYTE ESTERASE NEG Leu/uL (Negative); URINE PROTEIN 1+ mg/dL (NEGATIVE); URINE UROBILINOGEN NORMAL mg/dL (0.2-1.0)
--- NOTE | 2018-08-28 13:27 | C.PDOC ---
History Of Present Illness 37 year old female presents to the emergency department with complaints of dysuria and lower abdominal pain. Patient reports that she has had multiple UTI's over the past several months, and was recently treated for ESBL at [facility], with daily IV antibiotic injections over last week. Patient reports that she is still symptomatic, but denies fever, chills, nausea, and vomiting. Time Seen by Provider: 08/28/18 12:15 Chief Complaint (Nursing): Female Genitourinary History Per: Patient History/Exam Limitations: no limitations Onset/Duration Of Symptoms: Days Current Symptoms Are (Timing): Still Present Quality Of Discomfort: "Pain" Associated Symptoms: Urinary Symptoms (dysuria). denies: Fever, Chills, Nausea Past Medical History Reviewed: Historical Data, Nursing Documentation, Vital Signs Vital Signs: Last Vital Signs Temp 99.1 F 08/28/18 11:52 Pulse 71 08/28/18 11:52 Resp 16 08/28/18 11:52 BP 111/71 08/28/18 11:52 Pulse Ox 100 08/28/18 11:52 - Medical History PMH: No Chronic Diseases Denies: Chronic Kidney Disease Surgical History: Family History: States: No Known Family Hx - Social History Hx Alcohol Use: No Hx Substance Use: No - Immunization History Hx Tetanus Toxoid Vaccination: No Hx Influenza Vaccination: No Hx Pneumococcal Vaccination: No Review Of Systems Constitutional: Negative for: Fever, Chills Gastrointestinal: Positive for: Abdominal Pain. Negative for: Nausea, Vomiting, Diarrhea Genitourinary: Positive for: Dysuria Physical Exam - Physical Exam Appears: Non-toxic, No Acute Distress Skin: Warm, Dry Head: Atraumatic, Normacephalic Eye(s): bilateral: Normal Inspection Neck: Normal, Supple Chest: Symmetrical, No Tenderness Cardiovascular: Rhythm Regular, No Murmur Respiratory: No Rales, No Rhonchi, No Wheezing Gastrointestinal/Abdominal: Soft, Tenderness (mild suprapubic tenderness), No Guarding, No Rebound Back: No CVA Tenderness Neurological/Psych: Oriented x3, Normal Speech, Normal Cognition ED Course And Treatment O2 Sat by Pulse Oximetry: 100 (RA) Pulse Ox Interpretation: Normal Progress Note: Plan: CMP. CBC. Urine Culture. Urinalysis Medical Decision Making Medical Decision Making: pt discussed with Dr Burns, from [place]. pt just completed one week of daily ertapenem at [facility]. still symptomatic. Dr Burns recommends tx with pyridium with f/u in [facility]. pt understands plan Disposition Counseled Patient/Family Regarding: Studies Performed, Diagnosis, Need For Followup, Rx Given - Disposition Referrals: Sea Allison MD [Staff Provider] - [facility] [Outside] Disposition: HOME/ ROUTINE Disposition Time: 13:27 Condition: GOOD Additional Instructions: Seguimiento en clnica mdica, con recomendacin para derivacin a urologa y ginecologa. [place] pyridium cuando est preformado; las lgrimas, la orina y los lquidos corporales se vuelven de color naranja. Regreso a la elvis de emergencias por fiebre, peor dolor u otras inquietudes. Follow up in medical clinic, with recommmendation for referral to urology and gynecology. Take pyridium as prescrbied- turns tears, urine and body fluids orange. Rturn to ER for fever, worse pain or other concerns. 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 - Scribe Statement The provider has reviewed the documentation as recorded by the Scribe (Zia Fairchild) All medical record entries made by the Scribe were at my direction and personally dictated by me. I have reviewed the chart and agree that the record accurately reflects my personal performance of the history, physical exam, medical decision making, and the department course for this patient. I have also personally directed, reviewed, and agree with the discharge instructions and disposition.
[2018-08-28 13:42] VITALS: BP 116/79; PULSE 78; RESP 18; TEMP 98.4
[2018-08-28 15:34] VITALS: O2SAT 100
== END 2018-08-28 13:40 | disposition home or self-care (01) ==
LOC: C.ER 11:46
DX: R30.0 Dysuria (principal)

== ENCOUNTER 2018-10-25 10:35 | Emergency (ER) | payer OTHER ==
[2018-10-25 10:50] VITALS: BMI 20.7
[2018-10-25 10:54] VITALS: BP 106/73; PULSE 81; RESP 18; TEMP 98.2; O2SAT 98
[2018-10-25 11:19] LABS: HCG,QUALITATIVE URINE NEGATIVE (NEGATIVE)
[2018-10-25 11:36] LABS: SQUAMOUS EPITHIAL 1 /hpf (0-5); URINE BILIRUBIN NEGATIVE (NEGATIVE); URINE BLOOD 2+ (NEGATIVE); URINE CLARITY Hazy (Clear); URINE COLOR Amber (YELLOW); URINE GLUCOSE (UA) NORMAL (Normal); URINE LEUKOCYTE ESTERASE 2+ Leu/uL (Negative); URINE PROTEIN 1+ mg/dL (NEGATIVE); URINE UROBILINOGEN NORMAL mg/dL (0.2-1.0)
--- NOTE | 2018-10-25 12:14 | C.PDOC ---
History Of Present Illness 37 y/o female presents to the ED complaining of dysuria and suprapubic pain for 2 days s/p cystoscopy. Patient reports she was started on antibiotics prior to procedure. Now describes having burning on urination and urinary frequency. She otherwise denies any nausea, vomiting, fever, or chills. Time Seen by Provider: 10/25/18 10:57 Chief Complaint (Nursing): Female Genitourinary History Per: Patient History/Exam Limitations: no limitations Onset/Duration Of Symptoms: Days Current Symptoms Are (Timing): Still Present Past Medical History Reviewed: Historical Data, Nursing Documentation, Vital Signs Vital Signs: Last Vital Signs Temp 98.2 F 10/25/18 10:50 Pulse 81 10/25/18 10:50 Resp 18 10/25/18 10:50 BP 106/73 10/25/18 10:50 Pulse Ox 98 10/25/18 10:50 - Medical History PMH: Denies: Chronic Kidney Disease Surgical History: Family History: States: Unknown Family Hx - Social History Hx Tobacco Use: No Hx Alcohol Use: No Hx Substance Use: No - Immunization History Hx Tetanus Toxoid Vaccination: No Hx Influenza Vaccination: No Hx Pneumococcal Vaccination: No Review Of Systems Except As Marked, All Systems Reviewed And Found Negative. Constitutional: Negative for: Fever, Chills Gastrointestinal: Positive for: Abdominal Pain (suprapubic). Negative for: Nausea, Vomiting Genitourinary: Positive for: Dysuria. Negative for: Hematuria, Vaginal Bleeding Physical Exam - Physical Exam Appears: Non-toxic, No Acute Distress, Other (Appears uncomfortable, not febrile) Skin: Normal Color, Warm, Dry Head: Atraumatic, Normacephalic Eye(s): bilateral: Normal Inspection, PERRL, EOMI Oral Mucosa: Moist Neck: Normal ROM Chest: Symmetrical Cardiovascular: Rhythm Regular, No Murmur Respiratory: Normal Breath Sounds, No Accessory Muscle Use Gastrointestinal/Abdominal: Soft, Tenderness (Suprapubic discomfort on palpation), No Distention, No Guarding, No Rebound Back: No CVA Tenderness, No Vertebral Tenderness Extremity: Bilateral: Atraumatic, Normal Color And Temperature Neurological/Psych: Oriented x3, Normal Speech ED Course And Treatment O2 Sat by Pulse Oximetry: 98 (RA) Pulse Ox Interpretation: Normal Medical Decision Making Medical Decision Making: Plan: --Urinalysis --Urine preg --Motrin 600 mg PO --Tylenol 975 mg PO Labs reviewed: UA shows 2+ leuks Patient will be discharged home. Plan is to treat for UTI. Advised patient to follow up with the clinic for further evaluation. Disposition Counseled Patient/Family Regarding: Studies Performed, Diagnosis, Rx Given - Disposition Referrals: [facility] [Outside] Disposition: HOME/ ROUTINE Disposition Time: 12:11 Condition: STABLE Prescriptions: Ibuprofen [Motrin] 600 mg PO TID PRN #12 tab PRN Reason: Pain, Mild (1-3) Nitrofurantoin Macrocrystal [Nitrofurantoin] 100 mg PO BID #14 capsule Phenazopyridine [Pyridium] 200 mg PO PC #12 tab Instructions: Dysuria, Adult (DC) Forms: Gen Discharge Inst Martiniquais, Work/School/Gym Excuse, [employer] Connect (Martiniquais) - POA Present On Arrival: None - Clinical Impression Clinical Impression: Dysuria - Scribe Statement The provider has reviewed the documentation as recorded by the Dax Reyes Provider Attestation: All medical record entries made by the Dax were at my direction and personally dictated by me. I have reviewed the chart and agree that the record accurately reflects my personal performance of the history, physical exam, medical decision making, and the department course for this patient. I have also personally directed, reviewed, and agree with the discharge instructions and disposition.
== END 2018-10-25 12:50 | disposition home or self-care (01) ==
LOC: C.ER 10:35
DX: R30.0 Dysuria (principal)